=== PATIENT | male | born 1965 | race Hispanic/Latino ===

== ENCOUNTER 2017-05-17 15:01 | Observation (INO) | payer OTHER ==
[2017-05-17] MEDS ORDERED: Sodium Chloride 0.9% 1,000 ML IV STA (15:31)
[2017-05-17] MEDS ORDERED: Oxycodone/Acetaminophen 10/325 mg Tab PO STA (15:31)
--- NOTE | 2017-05-17 15:41 | ED PDOC ---
Arrival/HPI - General Chief Complaint: Shortness Of Breath Time Seen by Provider: 05/17/17 15:04 Historian: Patient - History of Present Illness Narrative History of Present Illness (Text): 05/17/17 15:25 Kimo Burt is a 52 year old male, with a history of right shoulder surgery on 15 mg percocet, and anxiety on Xanax, presents to the emergency department complaining of dizziness and shortness of breath for past 2-3 days. Patient became dizzy yesterday while taking a shower and states he twisted his shoulder after holding on to a handle to prevent the fall. Denies any LOC, head trauma, or weakness/numbness of extremity. Patient finished a course of Zithromax today for bronchitis. Patient also reports that he has difficulty breathing and chest pain which is worsened with deep inspiration. He has a recent stress test which , according to patient, showed" enlarged left ventricle." He also notes of hypotension with a pressure of 88/50 which was measured a week ago at PMD's office. He also reports of decreased appetite over the last few months, and informs of a weight loss of 20 pounds in 2 months. States he feels depressed, but denies any suicidal or homicidal ideation. Patient was started on Lexapro for depression by PMD, but was discontinued due to worsening panic attacks. Denies fever, chills, headache, nausea, vomiting, urinary symptoms, or any other complaints at this time. Time/Duration: < week (2-3 days ) Symptom Onset: Gradual Severity Level: Mild Context: Home Past Medical History - Provider Review Nursing Documentation Reviewed: Yes - Infectious Disease Hx of Infectious Diseases: None - Tetanus Immunization Tetanus Immunization: Unknown - Past Medical History Past Medical History: No Previous - Cardiac Hx Cardiac Disorders: No - Pulmonary Hx Respiratory Disorders: No Hx Bronchitis: Yes - Neurological Hx Neurological Disorder: No - HEENT Hx HEENT Disorder: No - Renal Hx Renal Disorder: No - Endocrine/Metabolic Hx Endocrine Disorders: No - Hematological/Oncological Hx Blood Disorders: No - Integumentary Hx Dermatological Disorder: No - Musculoskeletal/Rheumatological Hx Musculoskeletal Disorders: Yes Other/Comment: left torn rotator cuff - Gastrointestinal Hx Gastrointestinal Disorders: No - Genitourinary/Gynecological Hx Genitourinary Disorders: No - Psychiatric Hx Psychophysiologic Disorder: No Hx Depression: No Hx Emotional Abuse: No Hx Physical Abuse: No Hx Substance Use: No - Past Surgical History Past Surgical History: No Previous - Surgical History Hx Cardiac Catheterization: Yes Hx Eye Surgery: Yes (childhood) Hx Tonsillectomy: Yes Other/Comment: hemorrhoid surgery, 5 avusion fx, right rotator cuff surgery - Anesthesia Hx Anesthesia: Yes Hx Anesthesia Reactions: No - Suicidal Assessment Feels Threatened In Home Enviroment: No Family/Social History - Physician Review Nursing Documentation Reviewed: Yes Family/Social History: No Known Family HX Smoking Status: Current Some Days Smoker Hx Alcohol Use: Yes Amount per day: 2 Hx Substance Use: No Hx Substance Use Treatment: No Allergies/Home Meds Allergies/Adverse Reactions: Allergies amoxicillin trihydrate [From Augmentin] Allergy (Verified 05/17/17 15:10) ANAPHYLAXIS potassium clavulanate [From Augmentin] Allergy (Verified 05/17/17 15:10) ANAPHYLAXIS prednimustine Allergy (Verified 05/17/17 18:26) RASH prednisolone Allergy (Verified 05/17/17 18:26) RASH prednisolone acetate, micronized Allergy (Verified 05/17/17 18:26) RASH prednisone Allergy (Verified 05/17/17 18:26) RASH prednylidene Allergy (Verified 05/17/17 18:26) RASH prednison Allergy (Uncoded 05/17/17 18:26) RASH Home Medications: Home Meds Medication Instructions Recorded Confirmed ALPRAZolam HALF TABLET [Xanax] 1 mg PO DAILY 01/05/17 05/17/17 Oxycodone HCl [Roxicodone] 15 mg PO Q6 PRN 01/05/17 05/17/17 Review of Systems - Physician Review All systems were reviewed & negative as marked: Yes - Review of Systems Constitutional: Normal. absent: Fatigue, Fevers Respiratory: SOB. absent: Cough, Sputum Cardiovascular: Chest Pain, Other (near syncope). absent: Palpitations Gastrointestinal: Diarrhea, Appetite Changes (Loss of appetite; weight loss ). absent: Abdominal Pain, Nausea, Vomiting Genitourinary Male: Normal. absent: Dysuria Musculoskeletal: Back Pain, Other (left shoulder pain ) Neurological: Dizziness. absent: Focal Weakness Psychiatric: Depression. absent: Suicidal Ideation Physical Exam Vital Signs Reviewed: Yes Vital Signs Temp Pulse Resp BP Pulse Ox 05/17/17 17:40 48 L 18 130/65 98 05/17/17 16:39 56 L 18 131/69 98 05/17/17 16:27 56 L 18 152/62 H 100 05/17/17 15:06 97.8 F 76 14 156/66 H 100 Temperature: Afebrile Blood Pressure: Hypertensive Pulse: Regular Respiratory Rate: Normal Appearance: Positive for: Non-Toxic, Uncomfortable Pain Distress: None Mental Status: Positive for: Alert and Oriented X 3 - Systems Exam Head: Present: Atraumatic, Normocephalic Pupils: Present: PERRL Conjunctiva: Present: Normal Mouth: Present: Moist Mucous Membranes Pharnyx: Present: Normal. No: ERYTHEMA, EXUDATE Respiratory/Chest: Present: Clear to Auscultation, Good Air Exchange. No: Respiratory Distress, Accessory Muscle Use Cardiovascular: Present: Regular Rate and Rhythm, Normal S1, S2. No: Murmurs Abdomen: Present: Normal Bowel Sounds. No: Tenderness, Distention, Peritoneal Signs, Rebound, Guarding Upper Extremity: Present: Normal ROM (Full active and passive range of motion at the shoulder ), NORMAL PULSES, Tenderness (Tenderness to palpation of left posterior shoulder ), Neurovascularly Intact. No: Cyanosis, Edema, Swelling, Temperature Abnormalties, Deformity Lower Extremity: Present: Normal Inspection. No: Edema Neurological: Present: GCS=15, CN II-XII Intact, Speech Normal, Motor Func Grossly Intact, Normal Sensory Function Skin: Present: Warm, Dry, Normal Color. No: Rashes Psychiatric: Present: Alert, Oriented x 3, Normal Insight, Normal Concentration Medical Decision Making ED Course and Treatment: 05/17/17 15:43 Impression: A 52 year old male who presents to the emergency department complaining of dizziness, left shoulder, shortness of breath and chest pain for past few days. Differential Diagnosis include but are not limited to: Malignancy vs PE vs anxiety Plan: -- CT chest, Abd/Pel -- Labs, cardiac enzymes -- TSH -- Percocet -- Pepcid -- Toradol -- IVF -- Left shoudler X-ray -- Urinalysis -- Reassess and disposition -- Spoke with his pmd, Dr. Brady - plan will be to f/u results and admit. Progress Notes: 05/17/17 18:59 EXAM: CT Abdomen and Pelvis With Intravenous Contrast FINDINGS: ABDOMEN: Liver: A few small calcifications are visualized within the liver, suggestive of granulomatous disease. No mass. Gallbladder and bile ducts: No calcified stones. No ductal dilation. Pancreas: There is hypodense fatty infiltration of the head of the pancreas. Spleen: No splenomegaly. Adrenals: No mass. Kidneys and ureters: There is an exophytic hypodense left renal cyst measuring 5.4 cm in diameter. No hydronephrosis bilaterally. Stomach and bowel: There is wall thickening of the sigmoid colon and rectum , suggestive of proctocolitis. Colonic diverticula are also visualized. Additional pathology cannot be excluded. Appendix: No findings to suggest acute appendicitis. PELVIS: Bladder: No mass. Reproductive: A tiny calcification is visualized within the prostate. ABDOMEN and PELVIS: Intraperitoneal space: No free air. Bones/joints: Hypertrophic degenerative changes are noted within the spine. Vasculature: No abdominal aortic aneurysm. Lymph nodes: There is no significant retroperitoneal or intrapelvic lymphadenopathy. IMPRESSION: 1. There is wall thickening of the sigmoid colon and rectum, suggestive of proctocolitis. Colonic diverticula are also visualized. Additional pathology cannot be excluded. If further evaluation is clinically indicated, colonoscopy is recommended. 2. There is an exophytic hypodense left renal cyst measuring 5.4 cm in diameter. 3. Additional CT findings described above. EXAM: CT Chest With Intravenous Contrast FINDINGS: Lungs: On series 4 image 61, there is a 3-4mm left upper lobe nodule. Within the right middle lobe of the lung on series 4 image 92, there is a 9 mm hyperdense calcified nodule. No lung mass. Within the left lower lobe on series 4 image 87, there is an equivocal 3-4 mm nodule. Small biapical bullae are visualized. Pleural space: No pneumothorax. No significant effusion. Heart: There is a small pericardial effusion anteriorly. Fluid is visualized within the superior pericardial recess. Bones/joints: Hypertrophic degenerative changes are noted within the spine. Vasculature: There is absence of normal enhancement within segmental branches to the right middle lobe, concerning for pulmonary embolism. No acute central pulmonary embolism. Lymph nodes: No significant mediastinal lymphadenopathy. Small hilar lymph nodes are identified, without significant lymphadenopathy. IMPRESSION: 1. There is absence of normal enhancement within segmental branches to the right middle lobe, concerning for pulmonary embolism. 2. Small noncalcified pulmonary nodule(s). If this patient is at low risk for a primary malignancy, then no follow-up is required. If this patient is at high risk for a primary maligancy, then a follow-up noncontrast chest CT is recommended at 12 months. If unchanged at that time, then no follow-up is required. Fleischner Society Recommendations. Incidental Pulmonary Nodule Follow-up. Radiology, 2005 Nov;237(2):395-400. 3. There is a small pericardial effusion anteriorly. 4. Within the right middle lobe of the lung on series 4 image 92, there is a 9 mm hyperdense calcified nodule. EXAM: CT Abdomen and Pelvis With Intravenous Contrast FINDINGS: ABDOMEN: Liver: A few small calcifications are visualized within the liver, suggestive of granulomatous disease. No mass. Gallbladder and bile ducts: No calcified stones. No ductal dilation. Pancreas: There is hypodense fatty infiltration of the head of the pancreas. Spleen: No splenomegaly. Adrenals: No mass. Kidneys and ureters: There is an exophytic hypodense left renal cyst measuring 5.4 cm in diameter. No hydronephrosis bilaterally. Stomach and bowel: There is wall thickening of the sigmoid colon and rectum , suggestive of proctocolitis. Colonic diverticula are also visualized. Additional pathology cannot be excluded. Appendix: No findings to suggest acute appendicitis. PELVIS: Bladder: No mass. Reproductive: A tiny calcification is visualized within the prostate. ABDOMEN and PELVIS: Intraperitoneal space: No free air. Bones/joints: Hypertrophic degenerative changes are noted within the spine. Vasculature: No abdominal aortic aneurysm. Lymph nodes: There is no significant retroperitoneal or intrapelvic lymphadenopathy. IMPRESSION: 1. There is wall thickening of the sigmoid colon and rectum, suggestive of proctocolitis. Colonic diverticula are also visualized. Additional pathology cannot be excluded. If further evaluation is clinically indicated, colonoscopy is recommended. 2. There is an exophytic hypodense left renal cyst measuring 5.4 cm in diameter. 3. Additional CT findings described above. EXAM: CT Chest With Intravenous Contrast FINDINGS: Lungs: On series 4 image 61, there is a 3-4mm left upper lobe nodule. Within the right middle lobe of the lung on series 4 image 92, there is a 9 mm hyperdense calcified nodule. No lung mass. Within the left lower lobe on series 4 image 87, there is an equivocal 3-4 mm nodule. Small biapical bullae are visualized. Pleural space: No pneumothorax. No significant effusion. Heart: There is a small pericardial effusion anteriorly. Fluid is visualized within the superior pericardial recess. Bones/joints: Hypertrophic degenerative changes are noted within the spine. Vasculature: There is absence of normal enhancement within segmental branches to the right middle lobe, concerning for pulmonary embolism. No acute central pulmonary embolism. Lymph nodes: No significant mediastinal lymphadenopathy. Small hilar lymph nodes are identified, without significant lymphadenopathy. IMPRESSION: 1. There is absence of normal enhancement within segmental branches to the right middle lobe, concerning for pulmonary embolism. 2. Small noncalcified pulmonary nodule(s). If this patient is at low risk for a primary malignancy, then no follow-up is required. If this patient is at high risk for a primary maligancy, then a follow-up noncontrast chest CT is recommended at 12 months. If unchanged at that time, then no follow-up is required. Fleischner Society Recommendations. Incidental Pulmonary Nodule Follow-up. Radiology, 2005 Nov;237(2):395-400. 3. There is a small pericardial effusion anteriorly. 4. Within the right middle lobe of the lung on series 4 image 92, there is a 9 mm hyperdense calcified nodule. Dictated By: Neal Wilcox MD, MD Dictated Date/Time: 05/17/171849 Signed By: Neal Palmer MD 05/17/17 19:27 Patient with noted history. Given sob and weight loss, CT c/a/p ordered, showing PE and proctocolitis. Will start on heparin and abx - will need to be admitted - will need pulmonary, hematology, and GI consult. Case discussed with Dr. Ochoa who will admit the patient to the hospitalist service. - Lab Interpretations Lab Results: 05/17/17 15:38 05/17/17 15:38 Lab Results 05/17/17 16:00: Urine Color Yellow, Urine Appearance Clear, Urine pH 8.5, Ur Specific [place] 1.010, Urine Protein Negative, Urine Glucose (UA) Negative, Urine Ketones Negative, Urine Blood Negative, Urine Nitrate Negative, Urine Bilirubin Negative, Urine Urobilinogen 0.2, Ur Leukocyte Esterase Negative 05/17/17 15:38: TSH 3rd Generation 0.83 05/17/17 15:38: Sodium 142, Potassium 4.0, Chloride 106, Carbon Dioxide 27, Anion Gap 13, BUN 9, Creatinine 0.9, Est GFR ( Amer) > 60, Est GFR (Non- Af Amer) > 60, Random Glucose 100, Calcium 9.6, Magnesium 2.1, Total Bilirubin 0.5, Direct Bilirubin 0.3, AST 29, ALT 29, Alkaline Phosphatase 44, Lactate Dehydrogenase 318 L, Total Creatine Kinase 85, Troponin I < 0.01, NT-Pro-B Natriuret Pep 89.4, Total Protein 6.8, Albumin 4.2, Globulin 2.6, Albumin/ Globulin Ratio 1.6, Lipase 49 05/17/17 15:38: PT 10.9, INR 1.01, APTT 27.2 05/17/17 15:38: WBC 5.7, RBC 4.57, Hgb 13.1 L, Hct 38.4 L, MCV 84.0, MCH 28.7, MCHC 34.1, RDW 13.4, Plt Count 177, MPV 9.3, Gran % 66.0, Lymph % (Auto) 27.6, [place] % (Auto) 5.9, Eos % (Auto) 0.3 L, Baso % (Auto) 0.2, Gran # 3.78, Lymph # 1.6, [place] # 0.3, Eos # 0.0, Baso # 0.01 I have reviewed the lab results: Yes - RAD Interpretation Narrative RAD Interpretations (Text): 05/17/17 19:33 L shoulder: no acute findings Radiology Orders: 05/17/17 15:27 SHOULDER LEFT [RAD] Stat 05/17/17 15:30 CHEST,ABD,PEL W/IV&PO CONTRAST [CT] Stat Factory Clerk: Radiologist - EKG Interpretation EKG Interpretation (Text): 05/17/17 19:32 NSR @ 68; no ST/T changes; normal intervals; normal axis. - Medication Orders Current Medication Orders: Heparin Sodium/Dextrose (Heparin 25,000 Units/250ml In D5w) 25,000 units in 250 mls @ 17.023 mls/hr IV .[id number] PRN; Protocol; 18 UNITS/KG/HR PRN Reason: ADJUST RATE PER PROTOCOL Discontinued Medications Famotidine (Pepcid) 20 mg IVP STAT STA Stop: 05/17/17 15:32 Last Admin: 05/17/17 16:03 Dose: 20 mg Heparin Sodium (Porcine) (Heparin) 7,600 units 80 units/kg (7600 units) IV ONCE ONE PRN Reason: Protocol Stop: 05/17/17 19:21 Sodium Chloride (Sodium Chloride 0.9%) 1,000 mls @ 999 mls/hr IV .Q1H1M STA Stop: 05/17/17 16:31 Last Admin: 05/17/17 16:01 Dose: 999 mls/hr Iohexol (Omnipaque 240 (50 Ml)) Confirm Administered Dose 50 ml .ROUTE .STK-MED ONE Stop: 05/17/17 16:10 Iohexol (Omnipaque 350 100 Ml) Confirm Administered Dose 350 mg .ROUTE .STK-MED ONE Stop: 05/17/17 16:10 Iohexol (Omnipaque 350 150 Ml) Confirm Administered Dose 150 ml .ROUTE .STK-MED ONE Stop: 05/17/17 18:19 Ketorolac Tromethamine (Toradol) 30 mg IVP STAT STA Stop: 05/17/17 15:32 Last Admin: 05/17/17 16:03 Dose: Not Given Non-Admin Reason: Patient Refused Morphine Sulfate (Morphine) 4 mg IVP STAT STA Stop: 05/17/17 16:27 Last Admin: 05/17/17 16:32 Dose: 4 mg Oxycodone/Acetaminophen (Percocet 10/325 Mg Tab) 1 tab PO STAT STA Stop: 05/17/17 15:32 Last Admin: 05/17/17 16:01 Dose: 1 tab - Scribe Statement The provider has reviewed the documentation as recorded by the Mario Patricia Provider Attestation: Krystal Patricia Provider Scribe Attestation: All medical record entries made by the Enriqueibcharlie were at my direction and personally dictated by me. I have reviewed the chart and agree that the record accurately reflects my personal performance of the history, physical exam, medical decision making, and the department course for this patient. I have also personally directed, reviewed, and agree with the discharge instructions and disposition. Disposition/Present on Arrival - Present on Arrival Any Indicators Present on Arrival: No History of DVT/PE: No History of Uncontrolled Diabetes: No Urinary Catheter: No History of Decub. Ulcer: No History Surgical Site Infection Following: None - Disposition Have Diagnosis and Disposition been Completed?: Yes Diagnosis: Pulmonary embolism, Near syncope, Colitis Disposition: HOSPITALIZED Disposition Time: 19:15 Patient Plan: Admission Condition: FAIR Referrals: Garo Brady MD [Primary Care Provider] - Follow up with primary
[2017-05-17 16:02] LABS: BASO # 0.01 K/mm3 (0.0-2.0); BASO % 0.2 % (0.0-3.0); EOS % 0.3 % (1.5-5.0); GRAN # 3.78 (1.4-6.5); HEMOGLOBIN 13.1 gm/dL (14.0-18.0); LYMPH # 1.6 (1.2-3.4); LYMPH % 27.6 % (22.0-35.0); MEAN CORPUSCULAR HEMOGLOBIN 28.7 pg (25.0-35.0); MEAN CORPUSCULAR HGB CONC 34.1 g/dl (31.0-37.0); MEAN PLATELET VOLUME 9.3 fl (7.0-11.0); MONO # 0.3 (0.1-0.6); MONO % 5.9 % (1.0-6.0); PLATELET COUNT 177 10^3/uL (120.0-450.0); RBC 4.57 10^6/uL (3.5-6.1); RED CELL DISTRIBUTION WIDTH 13.4 % (11.5-14.5); WHITE BLOOD COUNT 5.7 10^3/ul (4.5-11.0)
[2017-05-17] MEDS ORDERED: Iohexol 240 (50 ml) ONE (16:09)
[2017-05-17] MEDS ORDERED: Iohexol 350 MG/100 ML VIAL ONE (16:09)
[2017-05-17 16:14] LABS: INR 1.01 (0.93-1.08); PARTIAL THROMBOPLASTIN TIME 27.2 Seconds (23.7-30.8); PROTHROMBIN TIME 10.9 Seconds (9.9-11.8)
[2017-05-17 16:19] LABS: PH,URINE 8.5 (4.7-8.0); URINE BILIRUBIN NEGATIVE (NEGATIVE); URINE BLOOD NEGATIVE (NEGATIVE); URINE GLUCOSE (UA) NEGATIVE (NEGATIVE); URINE LEUKOCYTE ESTERASE NEGATIVE Leu/uL (NEGATIVE); URINE NITRATE NEGATIVE (NEGATIVE); URINE PROTEIN NEGATIVE mg/dL (<30 mg/dL); URINE UROBILINOGEN 0.2 E.U./dL (<1 E.U./dL)
[2017-05-17 16:21] LABS: URINE COLOR YELLOW (YELLOW)
[2017-05-17 16:22] LABS: URINE APPEARANCE CLEAR (CLEAR)
[2017-05-17 16:23] LABS: ALB/GLOB RATIO 1.6 (1.1-1.8); ALBUMIN 4.2 g/dL (3.0-4.8); ALT/SGPT 29 U/L (7-56); AST/SGOT 29 U/L (15-59); BILIRUBIN,DIRECT 0.3 mg/dL (0.0-0.4); BLOOD UREA NITROGEN 9 mg/dL (7-21); CALCIUM 9.6 mg/dL (8.4-10.5); GFR AFRICAN-AMERICAN > 60; GFR NON-AFRICAN AMERICAN > 60; LIPASE 49 U/L (23-300); MAGNESIUM 2.1 mg/dL (1.7-2.2)
[2017-05-17] MEDS ORDERED: Morphine 4 mg/ml ISec IVP STA (16:26)
[2017-05-17 16:34] LABS: B-TYPE NATRIURETIC PEPTIDE 89.4 pg/mL (0-450)
[2017-05-17 16:38] LABS: TROPONIN I < 0.01 ng/mL
--- NOTE | 2017-05-17 18:50 | CT ---
EXAM: CT Abdomen and Pelvis With Intravenous Contrast CLINICAL HISTORY: The patient age is 52 years old and is male; Pain; Abdominal pain; Generalized; Chest pain; Type not specified; Additional info: Chest pain, epigastric pain; Weight loss; R/O ca Facility exam id and description: Ct [facility] chest, abd, pel w/iv po contrast TECHNIQUE: Axial computed tomography images of the abdomen and pelvis with intravenous contrast. This CT exam was performed using one or more of the following dose reduction techniques: automated exposure control, adjustment of the mA and/or kV according to patient size, and/or use of iterative reconstruction technique. Coronal and sagittal reformatted images were created and reviewed. CONTRAST: 100 mL of omni 350 administered intravenously. COMPARISON: No relevant prior studies available. FINDINGS: ABDOMEN: Liver: A few small calcifications are visualized within the liver, suggestive of granulomatous disease. No mass. Gallbladder and bile ducts: No calcified stones. No ductal dilation. Pancreas: There is hypodense fatty infiltration of the head of the pancreas. Spleen: No splenomegaly. Adrenals: No mass. Kidneys and ureters: There is an exophytic hypodense left renal cyst measuring 5.4 cm in diameter. No hydronephrosis bilaterally. Stomach and bowel: There is wall thickening of the sigmoid colon and rectum, suggestive of proctocolitis. Colonic diverticula are also visualized. Additional pathology cannot be excluded. Appendix: No findings to suggest acute appendicitis. PELVIS: Bladder: No mass. Reproductive: A tiny calcification is visualized within the prostate. ABDOMEN and PELVIS: Intraperitoneal space: No free air. Bones/joints: Hypertrophic degenerative changes are noted within the spine. Vasculature: No abdominal aortic aneurysm. Lymph nodes: There is no significant retroperitoneal or intrapelvic lymphadenopathy. IMPRESSION: 1. There is wall thickening of the sigmoid colon and rectum, suggestive of proctocolitis. Colonic diverticula are also visualized. Additional pathology cannot be excluded. If further evaluation is clinically indicated, colonoscopy is recommended. 2. There is an exophytic hypodense left renal cyst measuring 5.4 cm in diameter. 3. Additional CT findings described above. EXAM: CT Chest With Intravenous Contrast CLINICAL HISTORY: The patient age is 52 years old and is male; Pain; Abdominal pain; Generalized; Chest pain; Type not specified; Additional info: Chest pain, epigastric pain; Weight loss; R/O ca Facility exam id and description: Ct cheabdpelc chest, abd, pel w/iv po contrast TECHNIQUE: Axial computed tomography images of the chest with intravenous contrast. This CT exam was performed using one or more of the following dose reduction techniques: automated exposure control, adjustment of the mA and/or kV according to patient size, and/or use of iterative reconstruction technique. Coronal and sagittal reformatted images were created and reviewed. CONTRAST: 100 mL of omni 350 administered intravenously. EXAM DATE/TIME: 05/17/2017 3:30 PM COMPARISON: TMT - MYOCARDIAL STRESS REST SPECT 05/14/2017 7:47:36 AM FINDINGS: Lungs: On series 4 image 61, there is a 3-4mm left upper lobe nodule. Within the right middle lobe of the lung on series 4 image 92, there is a 9 mm hyperdense calcified nodule. No lung mass. Within the left lower lobe on series 4 image 87, there is an equivocal 3-4 mm nodule. Small biapical bullae are visualized. Pleural space: No pneumothorax. No significant effusion. Heart: There is a small pericardial effusion anteriorly. Fluid is visualized within the superior pericardial recess. Bones/joints: Hypertrophic degenerative changes are noted within the spine. Vasculature: There is absence of normal enhancement within segmental branches to the right middle lobe, concerning for pulmonary embolism. No acute central pulmonary embolism. Lymph nodes: No significant mediastinal lymphadenopathy. Small hilar lymph nodes are identified, without significant lymphadenopathy. IMPRESSION: 1. There is absence of normal enhancement within segmental branches to the right middle lobe, concerning for pulmonary embolism. 2. Small noncalcified pulmonary nodule(s). If this patient is at low risk for a primary malignancy, then no follow-up is required. If this patient is at high risk for a primary maligancy, then a follow-up noncontrast chest CT is recommended at 12 months. If unchanged at that time, then no follow-up is required. Fleischner Society Recommendations. Incidental Pulmonary Nodule Follow-up. Radiology, 2005 Nov;237(2):395-400. 3. There is a small pericardial effusion anteriorly. 4. Within the right middle lobe of the lung on series 4 image 92, there is a 9 mm hyperdense calcified nodule.
[2017-05-17] MEDS ORDERED: HYDROmorphone 1 mg/ml ISec IVP STA (19:58)
[2017-05-17] MEDS: Heparin 25,000units in D5W 25,000 UNITS/250 ML BAG IV PRN (20:12)
[2017-05-17 20:23] VITALS: BMI 27.5
--- NOTE | 2017-05-17 22:45 | CP.PCM.HP ---
<JeanieSrinivas - Last Filed: 05/18/17 07:05> History of Present Illness - History of Present Illness History of Present Illness: CC: Shoulder pain and SOB Mr. Álvarez is a 52 y/o male with a pertinent PMHx of tobacco abuse and right sided shoulder pain for which he takes Percocet 15, who presented with a c/o SOB of 2 months duration on and off, worsening over the past 2-3 days. Mr. Álvarez was recently seen for bronchitis and finished a course of ABx ( Zithromax) on the day of admission (05/17/17). Patient stated that the pain got worse with inspiration and that nothing made it better. Patient denied a history of clots, as well as a history of fever, chills, nausea, vomiting, urinary symptoms, or headaches. Patient further complained of pain in his right shoulder s/p catching a fall in the shower on Thursday. Patient received dilaudid in the ED for this pain. Patient denied any head trauma, focal weakness, loss of sensation, and any other symptoms. Of note, patient had a recent stress test which showed an enlarged left ventricle, per the patient. Cardio is on consult. Finally, patient also stated that he lost 80 pounds, unintentionally over the past year. Heme onc is on consult PMHx: As above PSHx: Rotator cuff surgery All: Prednisone, Augmentin SocHx: .5ppd for 30 years; cocaine, heroin in the past; drinks occasionally Meds: Percocet 15 mg; Xanax FamHx: Non-contributory Present on Admission - Present on Admission Any Indicators Present on Admission: No Review of Systems - Review of Systems Review of Systems: Constitutional: pt denies fever, chills, generalized weakness ENT: pt denies dysphagia, ofalgia, hearing deficit, rhinorrhea Eyes: pt denies sudden loss of vision, diplopia, blurred vision MSK: + shoulder joint pain, denies extremity cramping Cardio: +sob, +cp; pt deniesheart murmur; see hpi Pulm: +sob, pt denies cough, hemoptysis, wheeze GI: pt denies loss of appetite, abdominal pain, constipation, melena, n/v/d : pt denies burning on urination, urinary frequency, hematuria, urinary urgency Neuro: pt denies paresis, paresthesia, dizziness, gu, numbness, tingling Derm: pt denies skin changes, lesions, nail changes Endo: pt denies intolerance to heat/cold, diaphoresis, night sweats, polydipsia Psych: +anxiety; pt denies depression, mood changes Past Patient History - Infectious Disease Hx of Infectious Diseases: None - Tetanus Immunizations Tetanus Immunization: Unknown - Past Medical History & Family History Past Medical History?: Yes - Past Social History Smoking Status: Current Some Days Smoker - CARDIAC Hx Cardiac Disorders: No - PULMONARY Hx Respiratory Disorders: No Hx Bronchitis: Yes - NEUROLOGICAL Hx Neurological Disorder: No - HEENT Hx HEENT Problems: No - RENAL Hx Chronic Kidney Disease: No - ENDOCRINE/METABOLIC Hx Endocrine Disorders: No - HEMATOLOGICAL/ONCOLOGICAL Hx Blood Disorders: No - INTEGUMENTARY Hx Dermatological Problems: No - MUSCULOSKELETAL/RHEUMATOLOGICAL Hx Falls: No - GASTROINTESTINAL Hx Gastrointestinal Disorders: No - GENITOURINARY/GYNECOLOGICAL Hx Genitourinary Disorders: No - PSYCHIATRIC Hx Psychophysiologic Disorder: No Hx Depression: No Hx Emotional Abuse: No Hx Physical Abuse: No - SURGICAL HISTORY Hx Cardiac Catheterization: Yes Other/Comment: hemorrhoid surgery, 5 avusion fx, right rotator cuff surgery - ANESTHESIA Hx Anesthesia: Yes Hx Anesthesia Reactions: No Meds Allergies/Adverse Reactions: Allergies Allergy/AdvReac Type Severity Reaction Status Date / Time amoxicillin trihydrate Allergy ANAPHYLAXIS Verified 05/17/17 15:10 [From Augmentin] potassium clavulanate Allergy ANAPHYLAXIS Verified 05/17/17 15:10 [From Augmentin] prednimustine Allergy RASH Verified 05/17/17 18:26 prednisolone Allergy RASH Verified 05/17/17 18:26 prednisolone acetate, Allergy RASH Verified 05/17/17 18:26 micronized prednisone Allergy RASH Verified 05/17/17 18:26 prednylidene Allergy RASH Verified 05/17/17 18:26 prednison Allergy RASH Uncoded 05/17/17 18:26 Physical Exam - Constitutional Additional comments: VS as above Constitutional: a&o x 4, nad Head and Neck: neck supple, no jvd, trachea midline, carotid midline, no cervical/head mass Eyes: kelsea, nonicteric sclera, eom intact ENT: auditory acuity grossly intact, throat not congested, no nasal deformity Cardio: rrr, no m/r/g, no carotid bruit, nml s1, s2 Pulm: no accessory muscle use, equal nml breath sounds bilaterally, ctab Abd: s/nt/nd, nbs x 4 q, no palpable masses Derm: no rashes, no ulcers, no lesions Extr: no edema, no cyanosis, no calf tenderness, no lesions, no varicosities Neuro: cn II-XII grossly intact, ue and le 3+ muscle strength bilaterally, no los ue, le bilaterally and core Results - Vital Signs Recent Vital Signs: Last Vital Signs Temp 97.8 F 05/17/17 15:06 Pulse 48 L 05/17/17 17:40 Resp 18 05/17/17 20:17 BP 130/65 05/17/17 17:40 Pulse Ox 98 05/17/17 17:40 - Labs Result Diagrams: 05/17/17 15:38 05/17/17 15:38 Assessment & Plan - Assessment and Plan (Free Text) Assessment: Mr. Álvarez is a 52 y/o male with a pertinent PMHx of tobacco abuse and right sided shoulder pain for which he takes Percocet 15, who presented with a c/o SOB of 2 months duration on and off, worsening over the past 2-3 days. A/P: 1.) SOB 2/2 pulmonary embolism a.) heparin drip b.) pulm on consult c.) f/u with PMD 2.) CP likely 2/2 #1 above, VS unknown etiology a.) Cardio on consult 3.) Unprovoked weight loss possibly 2/2 malignancy VS anxiety VS colitis VS unknown etiology a.) uncalcified pulmonary nodules identified on CT b.) colon inflammation on CT c.) patient has a hx of anxiety d.) heme onc on consult e.) gi on consult f.) pulm on consult 4.) Hx/O shoulder pain a.) pt on home Percocet 5.) Hx/O Tobacco abuse a.) advise patient on tobacco cessation 6.) GI PPHXS a.) Protonix 7.) DVT PPHXS a.) Heparin drip <Paige Ochoa - Last Filed: 05/18/17 20:10> Results - Vital Signs Recent Vital Signs: Last Vital Signs Temp 98.9 F 05/18/17 18:00 Pulse 50 L 05/18/17 18:07 Resp 16 05/18/17 18:00 BP 123/72 05/18/17 18:00 Pulse Ox 99 05/18/17 00:01 - Labs Result Diagrams: 05/18/17 05:30 05/18/17 05:30 Labs: Laboratory Results - last 24 hr 05/18/17 05/18/17 05/18/17 02:15 05:30 05:30 WBC 5.7 RBC 4.12 Hgb 11.8 L Hct 34.9 L MCV 84.7 MCH 28.6 MCHC 33.8 RDW 13.7 Plt Count 147 MPV 9.2 Gran % 59.0 Lymph % (Auto) 30.9 [place] % (Auto) 8.1 H Eos % (Auto) 1.8 Baso % (Auto) 0.2 Gran # 3.36 Lymph # 1.8 [place] # 0.5 Eos # 0.1 Baso # 0.01 APTT 136.8 H* Sodium 141 Potassium 4.3 Chloride 108 H Carbon Dioxide 25 Anion Gap 12 BUN 12 Creatinine 0.9 Est GFR ( Amer) > 60 Est GFR (Non-Af Amer) > 60 Random Glucose 97 Calcium 8.8 Total Bilirubin 0.4 AST 16 ALT 23 Alkaline Phosphatase 44 Total Protein 6.0 Albumin 3.6 Globulin 2.4 Albumin/Globulin Ratio 1.5 05/18/17 05/18/17 10:30 15:37 WBC RBC Hgb Hct MCV MCH MCHC RDW Plt Count MPV Gran % Lymph % (Auto) [place] % (Auto) Eos % (Auto) Baso % (Auto) Gran # Lymph # [place] # Eos # Baso # APTT 51.4 H 54.0 H Sodium Potassium Chloride Carbon Dioxide Anion Gap BUN Creatinine Est GFR ( Amer) Est GFR (Non-Af Amer) Random Glucose Calcium Total Bilirubin AST ALT Alkaline Phosphatase Total Protein Albumin Globulin Albumin/Globulin Ratio Attending/Attestation - Attestation I have personally seen and examined this patient.: Yes I have fully participated in the care of the patient.: Yes I have reviewed all pertinent clinical information: Yes Notes (Text): 05/18/17 20:08 Patient was seen when he was in bed # 2 in the ER . Agree with history , physical examination, assessment and plan. 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 Primary physician at [facility].Infant Lead Teacher is . Was also seen by .
[2017-05-17] MEDS ORDERED: Oxycodone/Acetaminophen 10/325 mg Tab PO PRN (23:20)
[2017-05-18] MEDS: oxyCODONE 15 mg Immediate Release Tab PO PRN ×4 (05:12→22:57)
[2017-05-18 07:09] LABS: BASO # 0.01 K/mm3 (0.0-2.0); BASO % 0.2 % (0.0-3.0); EOS # 0.1 (0.0-0.7); EOS % 1.8 % (1.5-5.0); GRAN # 3.36 (1.4-6.5); HEMOGLOBIN 11.8 gm/dL (14.0-18.0); LYMPH # 1.8 (1.2-3.4); LYMPH % 30.9 % (22.0-35.0); MEAN CELL VOLUME 84.7 fL (80.0-105.0); MEAN CORPUSCULAR HEMOGLOBIN 28.6 pg (25.0-35.0); MEAN CORPUSCULAR HGB CONC 33.8 g/dl (31.0-37.0); MEAN PLATELET VOLUME 9.2 fl (7.0-11.0); MONO # 0.5 (0.1-0.6); MONO % 8.1 % (1.0-6.0); PLATELET COUNT 147 10^3/uL (120.0-450.0); RBC 4.12 10^6/uL (3.5-6.1); RED CELL DISTRIBUTION WIDTH 13.7 % (11.5-14.5); WHITE BLOOD COUNT 5.7 10^3/ul (4.5-11.0)
[2017-05-18 07:32] LABS: ALB/GLOB RATIO 1.5 (1.1-1.8); ALBUMIN 3.6 g/dL (3.0-4.8); ALT/SGPT 23 U/L (7-56); AST/SGOT 16 U/L (15-59); BLOOD UREA NITROGEN 12 mg/dL (7-21); CALCIUM 8.8 mg/dL (8.4-10.5); GFR AFRICAN-AMERICAN > 60; GFR NON-AFRICAN AMERICAN > 60
--- NOTE | 2017-05-18 07:34 | RAD ---
PROCEDURE: Radiographs of the Left Shoulder HISTORY: L shoulder pain post fall COMPARISON: Comparison made with CT scan chest 05/17/2017 which image the left shoulder in 3 planes. FINDINGS: BONES: No evidence of acute displaced fracture nor dislocation JOINTS: Mild degenerative changes of the left acromioclavicular joint. SOFT TISSUES: Normal. OTHER FINDINGS: None. IMPRESSION: Mild DJD left acromioclavicular joint. If symptoms persist or occult left shoulder showed shoulder
--- NOTE | 2017-05-18 09:27 | CP.PCM.CON ---
<Elaine Dailey - Last Filed: 05/18/17 14:07> History of Present Illness - History of Present Illness History of Present Illness: Kimo Burt is 52M w/ hx of hemorrhoids, chronic pain, and shoulder dysfunction who presents to the ER due to near syncope. Pt states for the past few weeks to a month is has been increasingly SOB, especially on exertion. Pt states that he has also been increasing lethargic an weak. Pt noted that prior to coming to the ER he suddenly felt lightheaded upon change in position. After ER w/u he was found to have an new and was found to have sigmoid and rectal wall thickening. Pt denies any recent abd pain, but at bedside states that he has been c/o of indigestion. He admits to some discomfort in LLQ, but denies any pain. He is chronically constipated 2/2 opiate use. According to him, he normally has 4-5 BM weekly. He does have a hx of hemorrhoids which required surgery (possible banding) 5 years ago. Pt states that he occasionally has BRBPR but associates it with his hemorrhoids and his often exacerbated with constipation and straining. He notes that he sees minimal blood during these episodes, and sometimes only while wiping. He states that he has had a routine colonoscopy 2 years ago at [facility], which he was told was neg for any findings. Pts also states he a had both an EGD and colonoscopy 5 years ago for lower GI bleed believed to be 2/2 hemorrhoids. He believes that the only findings were hemorrhoids. Pt notes having at least 8 lb weight loss in the last 1 month. Pt has lost almost 32 lb since Dec according to our records. 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 Endoscopy hx: (need records from [facility], faxed release) 2 years ago: possibly at [facility]; colonoscopy screening: denies any pathology ie polyps or masses 5 years ago: possibly at [facility]; Colon and EGD for GI bleed: as per pt, only hemorrhoids found Past Patient History - Infectious Disease Hx of Infectious Diseases: None - Tetanus Immunizations Tetanus Immunization: Unknown - Past Medical History & Family History Past Medical History?: Yes - Past Social History Smoking Status: Current Some Days Smoker - CARDIAC Hx Cardiac Disorders: No - PULMONARY Hx Respiratory Disorders: No Hx Bronchitis: Yes - NEUROLOGICAL Hx Neurological Disorder: No - HEENT Hx HEENT Problems: No - RENAL Hx Chronic Kidney Disease: No - ENDOCRINE/METABOLIC Hx Endocrine Disorders: No - HEMATOLOGICAL/ONCOLOGICAL Hx Blood Disorders: No - INTEGUMENTARY Hx Dermatological Problems: No - MUSCULOSKELETAL/RHEUMATOLOGICAL Hx Falls: No - GASTROINTESTINAL Hx Gastrointestinal Disorders: No - GENITOURINARY/GYNECOLOGICAL Hx Genitourinary Disorders: No - PSYCHIATRIC Hx Psychophysiologic Disorder: No Hx Depression: No Hx Emotional Abuse: No Hx Physical Abuse: No - SURGICAL HISTORY Hx Cardiac Catheterization: Yes Other/Comment: hemorrhoid surgery, 5 avusion fx, right rotator cuff surgery - ANESTHESIA Hx Anesthesia: Yes Hx Anesthesia Reactions: No Meds Allergies/Adverse Reactions: Allergies Allergy/AdvReac Type Severity Reaction Status Date / Time amoxicillin trihydrate Allergy ANAPHYLAXIS Verified 05/17/17 15:10 [From Augmentin] potassium clavulanate Allergy ANAPHYLAXIS Verified 05/17/17 15:10 [From Augmentin] prednimustine Allergy RASH Verified 05/17/17 18:26 prednisolone Allergy RASH Verified 05/17/17 18:26 prednisolone acetate, Allergy RASH Verified 05/17/17 18:26 micronized prednisone Allergy RASH Verified 05/17/17 18:26 prednylidene Allergy RASH Verified 05/17/17 18:26 prednison Allergy RASH Uncoded 05/17/17 18:26 - Medications Medications: Current Medications Alprazolam (Xanax) 1 mg PO DAILY ANNAMARIE Heparin Sodium/Dextrose (Heparin 25,000 Units/250ml In D5w) 25,000 units in 250 mls @ 17.023 mls/hr IV .[id number] PRN; Protocol; 18 UNITS/KG/HR PRN Reason: ADJUST RATE PER PROTOCOL Last Titration: 05/18/17 03:59 Dose: 14.06 units/kg/hr, 13.3 mls/hr Metronidazole (Flagyl) 250 mg in 50 mls @ 100 mls/hr IVPB Q8 ANNAMARIE PRN Reason: Protocol Stop: 05/23/17 14:01 Levofloxacin (Levaquin) 500 mg PO DAILY [facility] Oxycodone HCl (Oxycodone Immediate Release Tab) 15 mg PO Q6 PRN PRN Reason: Pain, severe (8-10) Last Admin: 05/18/17 05:12 Dose: 15 mg Pantoprazole Sodium (Protonix Ec Tab) 20 mg PO 0600,1600 [facility] Physical Exam - Constitutional Appears: Well, Non-toxic, No Acute Distress - Head Exam Head Exam: ATRAUMATIC, NORMOCEPHALIC - Eye Exam Eye Exam: EOMI, Normal appearance - ENT Exam ENT Exam: Mucous Membranes Moist, Normal Exam - Neck Exam Neck exam: Positive for: Normal Inspection - Respiratory Exam Respiratory Exam: Clear to Auscultation Bilateral, NORMAL BREATHING PATTERN - Cardiovascular Exam Cardiovascular Exam: REGULAR RHYTHM. absent: JVD - GI/Abdominal Exam GI & Abdominal Exam: Normal Bowel Sounds, Soft. absent: Guarding, Organomegaly , Pulsatile Mass, Rebound, Rigid - Rectal Exam Additional comments: no stool in rectal vault, felt hemorrhoid in the 8 and 6 0clock positions, old thrombosed skin tags noted around the anus - Extremities Exam Extremities exam: Positive for: normal inspection. Negative for: calf tenderness, joint swelling - Neurological Exam Neurological exam: Alert, Oriented x3 - Psychiatric Exam Psychiatric exam: Normal Affect, Normal Mood - Skin Skin Exam: Dry, Intact, Normal Color, Warm Results - Vital Signs Recent Vital Signs: Last Vital Signs Temp 98.5 F 05/18/17 06:22 Pulse 70 05/18/17 06:22 Resp 20 05/18/17 06:22 BP 107/61 05/18/17 06:22 Pulse Ox 99 05/18/17 00:01 - Labs Result Diagrams: 05/18/17 05:30 05/18/17 05:30 Labs: Laboratory Results - last 24 hr 05/18/17 05/18/17 05/18/17 02:15 05:30 05:30 WBC 5.7 RBC 4.12 Hgb 11.8 L Hct 34.9 L MCV 84.7 MCH 28.6 MCHC 33.8 RDW 13.7 Plt Count 147 MPV 9.2 Gran % 59.0 Lymph % (Auto) 30.9 [place] % (Auto) 8.1 H Eos % (Auto) 1.8 Baso % (Auto) 0.2 Gran # 3.36 Lymph # 1.8 [place] # 0.5 Eos # 0.1 Baso # 0.01 APTT 136.8 H* Sodium 141 Potassium 4.3 Chloride 108 H Carbon Dioxide 25 Anion Gap 12 BUN 12 Creatinine 0.9 Est GFR ( Amer) > 60 Est GFR (Non-Af Amer) > 60 Random Glucose 97 Calcium 8.8 Total Bilirubin 0.4 AST 16 ALT 23 Alkaline Phosphatase 44 Total Protein 6.0 Albumin 3.6 Globulin 2.4 Albumin/Globulin Ratio 1.5 - Imaging and Cardiology CT scan - abdomen Status: Report reviewed by me (+ PE and wall thickening of the sigmoid and rectum) Assessment & Plan - Assessment and Plan (Free Text) Assessment: Kimo Burt is a 52M w/ hx of chronic pain and hemorroids who presents to the ED with new PE. Pt was found to have incidental finding of sigmoid and rectal wall thickening without any symptoms. He has had previous colonoscopies and EGD in the last 2 and 5 years year. According to pt, other than the hemorrhoids there were no acute findings. Pt has also had a significant unintentional weight loss in the last year. Colitis of the sigmoid and rectum Dx: IBD, malignancy, Diverticulitis, infectious (low on diff. due to no other findings), ulcer -can discontinue abx, as pt is asymptomatic and afebrile since admission -can advance diet if tolerated -followup as outpt for colonoscopy 6-8 weeks post discharge for colonoscopy -will need to get records from PCP or other GI to confirm colonoscopy and EGD findings Indigestion DDx: GERD, r/o malignancy, dyspepsia -continue PPI -can do an EGD during followup colonoscopy in 6-8 weeks -avoid NSAIDs Constipation -likley 2/2 chronic opoid use -pt states that he is actively weaning off of is percocet -can use miraalax daily, with or without senna or colace Hemorrhoids -avoid constipation -recommend not straining or sitting on toilet basin for extended periods - can take stool softners OTC. D/W Dr. Kirkpatrick <Jarett Kirkpatrick - Last Filed: 05/18/17 14:21> Meds - Medications Medications: Current Medications Alprazolam (Xanax) 1 mg PO DAILY [facility] Last Admin: 05/18/17 10:17 Dose: 1 mg Heparin Sodium/Dextrose (Heparin 25,000 Units/250ml In D5w) 25,000 units in 250 mls @ 17.023 mls/hr IV .[id number] PRN; Protocol; 18 UNITS/KG/HR PRN Reason: ADJUST RATE PER PROTOCOL Last Admin: 05/18/17 11:41 Dose: 14.06 units/kg/hr, 13.297 mls/hr Oxycodone HCl (Oxycodone Immediate Release Tab) 15 mg PO Q6 PRN PRN Reason: Pain, severe (8-10) Pantoprazole Sodium (Protonix Ec Tab) 20 mg PO 0600,1600 [facility] Results - Vital Signs Recent Vital Signs: Last Vital Signs Temp 98.5 F 05/18/17 06:22 Pulse 70 05/18/17 06:22 Resp 20 05/18/17 06:22 BP 107/61 05/18/17 06:22 Pulse Ox 99 05/18/17 00:01 - Labs Result Diagrams: 05/18/17 05:30 05/18/17 05:30 Labs: Laboratory Results - last 24 hr 05/18/17 05/18/17 05/18/17 02:15 05:30 05:30 WBC 5.7 RBC 4.12 Hgb 11.8 L Hct 34.9 L MCV 84.7 MCH 28.6 MCHC 33.8 RDW 13.7 Plt Count 147 MPV 9.2 Gran % 59.0 Lymph % (Auto) 30.9 [place] % (Auto) 8.1 H Eos % (Auto) 1.8 Baso % (Auto) 0.2 Gran # 3.36 Lymph # 1.8 [place] # 0.5 Eos # 0.1 Baso # 0.01 APTT 136.8 H* Sodium 141 Potassium 4.3 Chloride 108 H Carbon Dioxide 25 Anion Gap 12 BUN 12 Creatinine 0.9 Est GFR ( Amer) > 60 Est GFR (Non-Af Amer) > 60 Random Glucose 97 Calcium 8.8 Total Bilirubin 0.4 AST 16 ALT 23 Alkaline Phosphatase 44 Total Protein 6.0 Albumin 3.6 Globulin 2.4 Albumin/Globulin Ratio 1.5 05/18/17 10:30 WBC RBC Hgb Hct MCV MCH MCHC RDW Plt Count MPV Gran % Lymph % (Auto) [place] % (Auto) Eos % (Auto) Baso % (Auto) Gran # Lymph # [place] # Eos # Baso # APTT 51.4 H Sodium Potassium Chloride Carbon Dioxide Anion Gap BUN Creatinine Est GFR ( Amer) Est GFR (Non-Af Amer) Random Glucose Calcium Total Bilirubin AST ALT Alkaline Phosphatase Total Protein Albumin Globulin Albumin/Globulin Ratio Attending/Attestation - Attestation I have personally seen and examined this patient.: Yes I have fully participated in the care of the patient.: Yes I have reviewed all pertinent clinical information: Yes Notes (Text): 05/18/17 14:14 I have seen and examined patient with GI fellow. Agree with above documentation with the following additions. In brief, this is a 52 year old male with history of chronic muscle and joint pain, who presents to hospital with complaint of progressive fatigue and dyspnea for the past three weeks. Workup during current hospitalization revealed acute pulmonary embolism. GI called for evaluation of bowel wall thickening present on CT imaging. Patient admits to intermittent "indigestion" but denies abdominal pain, nausea, vomiting , diarrhea, fever/chills, or change in bowel habits. He does report significant weight loss of nearly 35 pounds over past 5 months. He claims to have had a colonoscopy 2-3 years ago at [facility] which was normal as per patient. Fatigue, dyspnea on exertion - acute pulmonary embolism Unexplained weight loss Colitis - CT imaging reviewed by me showing minimal non-specific sigmoid/rectal wall thickening without associated blanca-colonic disease - Diet as tolerated - Continue with anti-coagulation treatment for acute pulmonary embolism - No clinical indication for antibiotic therapy in this situation given absence of GI symptoms - Hypercoaguable workup sent by medical team, follow up results - Obtain prior endoscopic reports from [facility] - Given ongoing unexplained weight loss in patient with heavy smoking history and new onset PE, malignancy must be ruled out. Would suggest elective outpatient endoscopic evaluation following resolution of acute issues. Will have to coordinate with PMD since patient will require extended therapy with anticoagulation. - Bowel regimen to prevent constipation
--- NOTE | 2017-05-18 09:55 | CARD ---
APPROVED REPORT EKG Measurement Heart [id number] <Conclusion> Normal sinus rhythm Normal ECG No change
[2017-05-18] MEDS ORDERED: cefTRIAXone 1 gm 1 GM/100 ML BAG IVPB SCH (10:00)
[2017-05-18] MEDS ORDERED: levoFLOXacin 500 MG TAB PO SCH (10:00)
[2017-05-18] MEDS: Heparin 25,000units in D5W 25,000 UNITS/250 ML BAG IV PRN (11:41)
--- NOTE | 2017-05-18 13:46 | CT ---
PROCEDURE: CT of the left shoulder without contrast HISTORY: r/o rotator cuff tear COMPARISON: TECHNIQUE: CT of the left shoulder was performed in the axial plane with sagittal and coronal reconstructions. FINDINGS: There is no obvious rotator cuff tear. There is no retraction or atrophy of the cuff. There are no significant degenerative changes arising from the acromion. There are no bony degenerative changes in the glenohumeral joint. IMPRESSION: Negative study
[2017-05-18] MEDS ORDERED: metroNIDAZOLE IV 250mg/50 ml 250 MG/50 ML BAG IVPB SCH (14:00)
--- NOTE | 2017-05-18 15:01 | CP.PCM.PN ---
<MichelecharlieMirelayaritza - Last Filed: 05/18/17 17:53> Subjective - Date & Time of Evaluation Date of Evaluation: 05/18/17 Time of Evaluation: 07:15 - Subjective Subjective: Patient has been S/E. Patient denies any headache, Lightheadedness, Dizziness. Patient complains of fatigue and SOB which he states has not improved since yesterday. Patient states that he still has some pain during inspiration. He also complains of left shoulder pain. This morning HR was found to be in 40s. Patient was asymptomatic. Stat EKG was ordered which showed Sinus Marco. Patient also states that he feels depressed which he thinks is a major contribution to his weight loss. Objective - Vital Signs/Intake and Output Vital Signs (last 24 hours): Temp Pulse Resp BP Pulse Ox 98.5 F 48 L 20 107/61 99 05/18/17 06:22 05/18/17 14:00 05/18/17 06:22 05/18/17 06:22 05/18/17 00:01 Intake and Output: 05/18/17 05/18/17 06:59 18:59 Intake Total 290 100 Balance 290 100 - Medications Medications: Current Medications Alprazolam (Xanax) 1 mg PO DAILY [facility] Last Admin: 05/18/17 10:17 Dose: 1 mg Heparin Sodium/Dextrose (Heparin 25,000 Units/250ml In D5w) 25,000 units in 250 mls @ 17.023 mls/hr IV .[id number] PRN; Protocol; 18 UNITS/KG/HR PRN Reason: ADJUST RATE PER PROTOCOL Last Admin: 05/18/17 11:41 Dose: 14.06 units/kg/hr, 13.297 mls/hr Oxycodone HCl (Oxycodone Immediate Release Tab) 15 mg PO Q6 PRN PRN Reason: Pain, severe (8-10) Pantoprazole Sodium (Protonix Ec Tab) 20 mg PO 0600,1600 [facility] - Labs Labs: 05/18/17 05:30 05/18/17 05:30 PT 10.9 Seconds (9.9-11.8) 05/17/17 15:38 INR 1.01 (0.93-1.08) 05/17/17 15:38 APTT 51.4 Seconds (23.7-30.8) H 05/18/17 10:30 - Constitutional Appears: Non-toxic, No Acute Distress - Head Exam Head Exam: ATRAUMATIC, NORMOCEPHALIC - Neck Exam Neck Exam: absent: Lymphadenopathy - Respiratory Exam Respiratory Exam: Clear to Ausculation Bilateral. absent: Rales, Rhonchi, Stridor - Cardiovascular Exam Cardiovascular Exam: Bradycardia, +S1, +S2. absent: JVD, Murmur - GI/Abdominal Exam GI & Abdominal Exam: Soft, Normal Bowel Sounds. absent: Tenderness - Skin Skin Exam: Intact Assessment and Plan - Assessment and Plan (Free Text) Assessment: Patient has been S/E. Patient denies any headache, Lightheadedness, Dizziness. Patient complains of fatigue and SOB which he states has not improved since yesterday. Patient states that he still has some pain during inspiration. He also complains of left shoulder pain. This morning HR was found to be in 40s. Patient was asymptomatic. Stat EKG was ordered which showed Sinus Marco. Plan: 1.) SOB 2/2 pulmonary embolism a.) heparin drip b.) pulm on consult c.) f/u with PMD 2.) CP likely 2/2 #1 above, VS unknown etiology a.) Cardio on consult 3. Asymptomatic Sinus Marco a.) Hold Opiod Medications if HR below 50 4.) History of TB a.) Was on Isoniazied for 6 months. b.) Pulm consulted. 5.) Unprovoked weight loss possibly 2/2 malignancy VS anxiety VS colitis VS unknown etiology a.) uncalcified pulmonary nodules identified on CT b.) colon inflammation on CT c.) patient has a hx of anxiety d.) heme onc on consult e.) gi on consult f.) pulm on consult 6.) Hx/O shoulder pain a.) pt on home Percocet (hold if HR below 50) b.) CT scan of left shoulder negative. 7.) Rule out Depression a.)Psych consult 8.) Hx/O Tobacco abuse a.) advise patient on tobacco cessation 9.) GI PPHXS a.) Protonix 10.) DVT PPHXS a.) Heparin drip. Will bridge to Coumadin tomorrow. <Corinne Cervantes B - Last Filed: 05/19/17 14:55> Objective - Vital Signs/Intake and Output Vital Signs (last 24 hours): Temp Pulse Resp BP Pulse Ox 98.5 F 57 L 20 100/66 100 05/19/17 11:47 05/19/17 11:47 05/19/17 11:47 05/19/17 11:47 05/19/17 05:50 Intake and Output: 05/19/17 05/19/17 06:59 18:59 Intake Total 250 Output Total 0 Balance 250 - Labs Labs: 05/19/17 09:00 05/19/17 09:00 PT 10.9 Seconds (9.9-11.8) 05/17/17 15:38 INR 1.01 (0.93-1.08) 05/17/17 15:38 APTT 52.9 Seconds (23.7-30.8) H 05/19/17 09:00 Attending/Attestation - Attestation I have personally seen and examined this patient.: Yes I have fully participated in the care of the patient.: Yes I have reviewed all pertinent clinical information, including history, physical exam and plan: Yes Notes (Text): I have seen and examined patient at bedside. Agree with the above note with the following additions/ exceptions: Briefly this is 52 year old male with history of DVT of LE x2 but has never been on anticoagulation, sinus bradycardia, history of TB, unintentional weight loss, shoulder pain, tobacco use who was admitted for evaluation of shortness of breath secondary to acute PE. Continue heparin drip. Plan to start novel anticoagulants tomorrow. Awaiting hematology consult. He is requesting for psychology consult. Upon discharge patient will follow up with Dr Brady. Dr Corinne Cervantes
--- NOTE | 2017-05-18 17:36 | CARD ---
APPROVED REPORT EKG Measurement Heart [id number] <Conclusion> Marked sinus bradycardia with 1st degree AV block Abnormal ECG
[2017-05-18] MEDS: Pantoprazole 20 mg EC Tab PO SCH (17:52)
[2017-05-19] MEDS: Heparin 25,000units in D5W 25,000 UNITS/250 ML BAG IV PRN (05:03)
[2017-05-19] MEDS: oxyCODONE 15 mg Immediate Release Tab PO PRN ×2 (05:09→11:15)
[2017-05-19] MEDS: Pantoprazole 20 mg EC Tab PO SCH (05:14)
[2017-05-19 05:53] VITALS: O2SAT 100
[2017-05-19 09:20] LABS: HEMOGLOBIN 12.5 gm/dL (14.0-18.0); MEAN CELL VOLUME 83.5 fL (80.0-105.0); MEAN CORPUSCULAR HEMOGLOBIN 28.6 pg (25.0-35.0); MEAN CORPUSCULAR HGB CONC 34.2 g/dl (31.0-37.0); MEAN PLATELET VOLUME 9.2 fl (7.0-11.0); RBC 4.37 10^6/uL (3.5-6.1); RED CELL DISTRIBUTION WIDTH 13.3 % (11.5-14.5); WHITE BLOOD COUNT 5.5 10^3/ul (4.5-11.0)
[2017-05-19 09:29] LABS: ALB/GLOB RATIO 1.6 (1.1-1.8); ALBUMIN 4.1 g/dL (3.0-4.8); ALT/SGPT 25 U/L (7-56); AST/SGOT 19 U/L (15-59); BLOOD UREA NITROGEN 12 mg/dL (7-21); CALCIUM 9.4 mg/dL (8.4-10.5); GFR AFRICAN-AMERICAN > 60; GFR NON-AFRICAN AMERICAN > 60
[2017-05-19] MEDS ORDERED: Potassium Chloride 20 mEq ER Tab PO ONE (09:31)
--- NOTE | 2017-05-19 10:11 | CP.PCM.PN ---
<Elaine Dailey - Last Filed: 05/19/17 12:11> Subjective - Date & Time of Evaluation Date of Evaluation: 05/19/17 Time of Evaluation: 10:00 - Subjective Subjective: GI Follow-up Pt seen and examined bedside at bedside Uneventful overnight Denies any Abd pain] tolerating diet No diarrhea, nausea or vomiting No other complaints other than pain 12-point ROS conducted by myself, other than what is previously stated above, it is neg Objective - Vital Signs/Intake and Output Vital Signs (last 24 hours): Temp Pulse Resp BP Pulse Ox 98.2 F 42 L 19 115/65 100 05/19/17 05:50 05/19/17 05:50 05/19/17 05:50 05/19/17 05:50 05/19/17 05:50 Intake and Output: 05/19/17 05/19/17 06:59 18:59 Intake Total 250 Output Total 0 Balance 250 - Medications Medications: Current Medications Alprazolam (Xanax) 1 mg PO DAILY [facility] Last Admin: 05/19/17 09:21 Dose: 1 mg Heparin Sodium/Dextrose (Heparin 25,000 Units/250ml In D5w) 25,000 units in 250 mls @ 17.023 mls/hr IV .[id number] PRN; Protocol; 18 UNITS/KG/HR PRN Reason: ADJUST RATE PER PROTOCOL Last Admin: 05/19/17 05:03 Dose: 14.06 units/kg/hr, 13.297 mls/hr Oxycodone HCl (Oxycodone Immediate Release Tab) 15 mg PO Q6 PRN PRN Reason: Pain, severe (8-10) Last Admin: 05/19/17 05:09 Dose: 15 mg Pantoprazole Sodium (Protonix Ec Tab) 20 mg PO 0600,1600 [facility] Last Admin: 05/19/17 05:14 Dose: Not Given - Labs Labs: 05/19/17 09:00 05/19/17 09:00 PT 10.9 Seconds (9.9-11.8) 05/17/17 15:38 INR 1.01 (0.93-1.08) 05/17/17 15:38 APTT 52.9 Seconds (23.7-30.8) H 05/19/17 09:00 - Constitutional Appears: Well, No Acute Distress - Head Exam Head Exam: ATRAUMATIC, NORMOCEPHALIC - Eye Exam Eye Exam: Normal appearance - ENT Exam ENT Exam: Mucous Membranes Moist, Normal Exam - Neck Exam Neck Exam: Full ROM, Normal Inspection - Respiratory Exam Respiratory Exam: Clear to Ausculation Bilateral, NORMAL BREATHING PATTERN - Cardiovascular Exam Cardiovascular Exam: REGULAR RHYTHM - GI/Abdominal Exam GI & Abdominal Exam: Soft, Normal Bowel Sounds. absent: Distended, Firm, Guarding, Rigid, Tenderness, Organomegaly - Back Exam Back Exam: NORMAL INSPECTION - Neurological Exam Neurological Exam: Alert, Awake, Oriented x3 - Skin Skin Exam: Dry, Intact, Normal Color, Warm Assessment and Plan - Assessment and Plan (Free Text) Assessment: Kimo Burt is a 52M w/ hx of chronic pain and hemorroids who presents to the ED with new PE. Pt was found to have incidental finding of sigmoid and rectal wall thickening without any symptoms. He has had previous colonoscopies and EGD in the last 2 and 5 years year. According to pt, other than the hemorrhoids there were no acute findings. Pt has also had a significant unintentional weight loss in the last year. Colitis of the sigmoid and rectum Dx: IBD, malignancy, Diverticulitis, infectious (low on diff. due to no other findings), ulcer -Pt is asymptomatic and afebrile since admission -followup as outpt for colonoscopy with his regular PI za 6-8 weeks post discharge for colonoscopy, pt advised to follow-up with us if unable to get in contact with prior GI physician -f/u with PCP Indigestion DDx: GERD, r/o malignancy, dyspepsia -EGD as outpt Constipation -usama 2/2 chronic opoid use -pt states that he is actively weaning off of is percocet -can use miraalax daily, with or without senna or colace Hemorrhoids -avoid constipation -recommend not straining or sitting on toilet basin for extended periods - can take stool softners OTC. Will D/W Dr. Stauffer <Gen Stauffer - Last Filed: 05/19/17 12:34> Objective - Vital Signs/Intake and Output Vital Signs (last 24 hours): Temp Pulse Resp BP Pulse Ox 98.5 F 57 L 20 100/66 100 05/19/17 11:47 05/19/17 11:47 05/19/17 11:47 05/19/17 11:47 05/19/17 05:50 Intake and Output: 05/19/17 05/19/17 06:59 18:59 Intake Total 250 Output Total 0 Balance 250 - Medications Medications: Current Medications Alprazolam (Xanax) 1 mg PO DAILY [facility] Last Admin: 05/19/17 09:21 Dose: 1 mg Heparin Sodium/Dextrose (Heparin 25,000 Units/250ml In D5w) 25,000 units in 250 mls @ 17.023 mls/hr IV .[id number] PRN; Protocol; 18 UNITS/KG/HR PRN Reason: ADJUST RATE PER PROTOCOL Last Admin: 05/19/17 05:03 Dose: 14.06 units/kg/hr, 13.297 mls/hr Oxycodone HCl (Oxycodone Immediate Release Tab) 15 mg PO Q6 PRN PRN Reason: Pain, severe (8-10) Last Admin: 05/19/17 11:15 Dose: 15 mg Pantoprazole Sodium (Protonix Ec Tab) 20 mg PO 0600,1600 [facility] Last Admin: 05/19/17 05:14 Dose: Not Given - Labs Labs: 05/19/17 09:00 05/19/17 09:00 PT 10.9 Seconds (9.9-11.8) 05/17/17 15:38 INR 1.01 (0.93-1.08) 05/17/17 15:38 APTT 52.9 Seconds (23.7-30.8) H 05/19/17 09:00 Attending/Attestation - Attestation I have personally seen and examined this patient.: Yes I have fully participated in the care of the patient.: Yes I have reviewed all pertinent clinical information, including history, physical exam and plan: Yes Notes (Text): 05/19/17 12:30 52 year old male with h/o chronic MSK pain admitted with fatigue/dysphnea, found to have PE. Also reports significant weight loss in the past year. 1. Unintentional weight loss 2. Abnormal CT scan of the GI tract 3. Constipation 4. Indigestion Plan: - Diet as tolerated - Continue anticoagulation - Considering unexplained weight loss in patient with heavy smoking history and new onset PE, malignancy must be ruled out. Would suggest elective outpatient endoscopic evaluation following resolution of acute issues - patient states that he will go [place] [facility] [place] endoscopy after [place] - continue bowel regimen for constipation -continue ppi for indigestion as needed -will sign off at this time
[2017-05-19 11:48] VITALS: BP 100/66; PULSE 57; RESP 20; TEMP 98.5
--- NOTE | 2017-05-19 13:55 | CP.PCM.DIS ---
<Diogenes Sanderson - Last Filed: 05/19/17 13:52> Provider - Provider Date of Admission: 05/17/17 19:15 Attending physician: Corinne Cervantes MD Primary care physician: Garo Brady MD Consults: Gi - Dr. Casimiro Meyers - Dr. Barbosa Heme Dr. Mcguire Cardio - Dr. Curry Time Spent in preparation of Discharge (in minutes): 35 Hospital Course - Lab Results Lab Results: Most Recent Lab Values WBC 5.5 10^3/ul (4.5-11.0) 05/19/17 09:00 RBC 4.37 10^6/uL (3.5-6.1) 05/19/17 09:00 Hgb 12.5 gm/dL (14.0-18.0) L 05/19/17 09:00 Hct 36.5 % (42.0-52.0) L 05/19/17 09:00 MCV 83.5 fL (80.0-105.0) 05/19/17 09:00 MCH 28.6 pg (25.0-35.0) 05/19/17 09:00 MCHC 34.2 g/dl (31.0-37.0) 05/19/17 09:00 RDW 13.3 % (11.5-14.5) 05/19/17 09:00 Plt Count 160 10^3/uL (120.0-450.0) 05/19/17 09:00 MPV 9.2 fl (7.0-11.0) 05/19/17 09:00 Gran % 59.0 % (50.0-68.0) 05/18/17 05:30 Lymph % (Auto) 30.9 % (22.0-35.0) 05/18/17 05:30 [place] % (Auto) 8.1 % (1.0-6.0) H 05/18/17 05:30 Eos % (Auto) 1.8 % (1.5-5.0) 05/18/17 05:30 Baso % (Auto) 0.2 % (0.0-3.0) 05/18/17 05:30 Gran # 3.36 (1.4-6.5) 05/18/17 05:30 Lymph # 1.8 (1.2-3.4) 05/18/17 05:30 [place] # 0.5 (0.1-0.6) 05/18/17 05:30 Eos # 0.1 (0.0-0.7) 05/18/17 05:30 Baso # 0.01 K/mm3 (0.0-2.0) 05/18/17 05:30 PT 10.9 Seconds (9.9-11.8) 05/17/17 15:38 INR 1.01 (0.93-1.08) 05/17/17 15:38 APTT 52.9 Seconds (23.7-30.8) H 05/19/17 09:00 Sodium 142 mmol/L (132-148) 05/19/17 09:00 Potassium 3.5 mmol/L (3.6-5.0) L 05/19/17 09:00 Chloride 107 mmol/L (98-107) 05/19/17 09:00 Carbon Dioxide 25 mmol/L (21-33) 05/19/17 09:00 Anion Gap 14 (10-20) 05/19/17 09:00 BUN 12 mg/dL (7-21) 05/19/17 09:00 Creatinine 0.9 mg/dL (0.5-1.4) 05/19/17 09:00 Est GFR ( Amer) > 60 05/19/17 09:00 Est GFR (Non-Af Amer) > 60 05/19/17 09:00 Random Glucose 116 mg/dL (70-110) H 05/19/17 09:00 Calcium 9.4 mg/dL (8.4-10.5) 05/19/17 09:00 Magnesium 2.1 mg/dL (1.7-2.2) 05/17/17 15:38 Total Bilirubin 0.6 mg/dL (0.2-1.3) 05/19/17 09:00 Direct Bilirubin 0.3 mg/dL (0.0-0.4) 05/17/17 15:38 AST 19 U/L (15-59) 05/19/17 09:00 ALT 25 U/L (7-56) 05/19/17 09:00 Alkaline Phosphatase 42 U/L (38-133) 05/19/17 09:00 Lactate Dehydrogenase 318 U/L (333-699) L 05/17/17 15:38 Total Creatine Kinase 85 U/L (35-230) 05/17/17 15:38 Troponin I < 0.01 ng/mL 05/17/17 15:38 NT-Pro-B Natriuret Pep 89.4 pg/mL (0-450) 05/17/17 15:38 Total Protein 6.5 g/dL (5.8-8.3) 05/19/17 09:00 Albumin 4.1 g/dL (3.0-4.8) 05/19/17 09:00 Globulin 2.5 gm/dL 05/19/17 09:00 Albumin/Globulin Ratio 1.6 (1.1-1.8) 05/19/17 09:00 Lipase 49 U/L (23-300) 05/17/17 15:38 TSH 3rd Generation 0.83 mIU/mL (0.46-4.68) 05/17/17 15:38 Urine Color Yellow (YELLOW) 05/17/17 16:00 Urine Appearance Clear (CLEAR) 05/17/17 16:00 Urine pH 8.5 (4.7-8.0) 05/17/17 16:00 Ur Specific [place] 1.010 (1.005-1.035) 05/17/17 16:00 Urine Protein Negative mg/dL (<30 mg/dL) 05/17/17 16:00 Urine Glucose (UA) Negative mg/dL (NEGATIVE) 05/17/17 16:00 Urine Ketones Negative mg/dL (NEGATIVE) 05/17/17 16:00 Urine Blood Negative (NEGATIVE) 05/17/17 16:00 Urine Nitrate Negative (NEGATIVE) 05/17/17 16:00 Urine Bilirubin Negative (NEGATIVE) 05/17/17 16:00 Urine Urobilinogen 0.2 E.U./dL (<1 E.U./dL) 05/17/17 16:00 Ur Leukocyte Esterase Negative Parth/uL (NEGATIVE) 05/17/17 16:00 - Hospital Course Hospital Course: This patient is a 55 year old male with a PMHx of a 15pack/ year tobacco use and Right sided shoulder pain (takes Percocet 15) who presented to the ED with complaints of SOB x 2 months which has gotten worse 2-3 days prior to ED visit, and shoulder pain post a pre-syncopal episode. Patient states that he almost passed out in the shower and had to stabilize himself by holding on to the railing which caused him to hurt his shoulder. Left Shoulder X-ray showed mild DJD at the AC joint. CT of Chest/Abd/Pelvis showed evidence of PE, colonic diverticula and mild wall thickening of the sigmoid colon and rectum. GI, Pulm , and Heme were consulted and patient began treatment for PE. During stay, patient had intermittent episodes of bradycardia in the 40s. Cardio was consulted. Pain medications were held for HR < 60. During stay patient also mentioned 80lbs weight loss within the past year and hx of TB. Further investigation revealed patient was treated for TB with Isoniazid for 6 months. Patient was placed on Heparin Drip for treatment of PE, and will start Eliquis 5mg BID for his outpatient anticoagulation regiment. Patient is to follow up with his Primary physician (Dr. Brady), GI, and Heme in the outpatient setting. Medications and Plan were reviewed with patient and he is agreeable to it. Patient seen, reviewed and discussed with Attending. Diogenes Sanderson PGY-1 Pager: - Date & Time of H&P Date of H&P: 05/19/17 Time of H&P: 08:00 Discharge Exam - Head Exam Head Exam: ATRAUMATIC, NORMOCEPHALIC - Eye Exam Eye Exam: EOMI, Normal appearance - Respiratory Exam Respiratory Exam: Clear to PA & Lateral. absent: Rales, Rhonchi, Wheezes, Stridor - Cardiovascular Exam Cardiovascular Exam: REGULAR RHYTHM, +S1, +S2. absent: JVD - GI/Abdominal Exam GI & Abdominal Exam: Normal Bowel Sounds, Soft. absent: Tenderness - Extremities Exam Additional comments: no pedal edema - Neurological Exam Neurological exam: Alert, Oriented x3 - Psychiatric Exam Psychiatric exam: Normal Affect, Normal Mood Discharge Plan - Discharge Medications Prescriptions: Apixaban [Eliquis] 5 mg PO BID #30 tablet - Follow Up Plan Condition: FAIR Disposition: HOME/ ROUTINE Instructions: Apixaban (By mouth), Pulmonary Embolism (DC), How to Stop Smoking (GEN), Syncope (GEN), Cigarette Smoking and Your Health (GEN), Dizziness (GEN) Additional Instructions: Discharge instructions: please follow up with primary physician within one week and follow up with Dr. Mcguire within one week. Please start new medication "ELIQUIS" TODAY. If condition occurs again, go to the nearest emergency room. Please do not drive and/or operate heavy machinery when taking pain medications. diet: Heart Healthy diet Patient states he is up to date with regards to the flu and the pneumococcal vaccines. Referrals: Garo Brady MD [Primary Care Provider] - <Corinne Cervantes - Last Filed: 05/21/17 14:03> Provider - Provider Date of Admission: 05/17/17 19:15 Attending physician: Corinne Cervantes MD Primary care physician: Garo Brady MD Hospital Course - Lab Results Lab Results: Most Recent Lab Values WBC 5.5 10^3/ul (4.5-11.0) 05/19/17 09:00 RBC 4.37 10^6/uL (3.5-6.1) 05/19/17 09:00 Hgb 12.5 gm/dL (14.0-18.0) L 05/19/17 09:00 Hct 36.5 % (42.0-52.0) L 05/19/17 09:00 MCV 83.5 fL (80.0-105.0) 05/19/17 09:00 MCH 28.6 pg (25.0-35.0) 05/19/17 09:00 MCHC 34.2 g/dl (31.0-37.0) 05/19/17 09:00 RDW 13.3 % (11.5-14.5) 05/19/17 09:00 Plt Count 160 10^3/uL (120.0-450.0) 05/19/17 09:00 MPV 9.2 fl (7.0-11.0) 05/19/17 09:00 Gran % 59.0 % (50.0-68.0) 05/18/17 05:30 Lymph % (Auto) 30.9 % (22.0-35.0) 05/18/17 05:30 [place] % (Auto) 8.1 % (1.0-6.0) H 05/18/17 05:30 Eos % (Auto) 1.8 % (1.5-5.0) 05/18/17 05:30 Baso % (Auto) 0.2 % (0.0-3.0) 05/18/17 05:30 Gran # 3.36 (1.4-6.5) 05/18/17 05:30 Lymph # 1.8 (1.2-3.4) 05/18/17 05:30 [place] # 0.5 (0.1-0.6) 05/18/17 05:30 Eos # 0.1 (0.0-0.7) 05/18/17 05:30 Baso # 0.01 K/mm3 (0.0-2.0) 05/18/17 05:30 PT 10.9 Seconds (9.9-11.8) 05/17/17 15:38 INR 1.01 (0.93-1.08) 05/17/17 15:38 APTT 52.9 Seconds (23.7-30.8) H 05/19/17 09:00 Protein C Antigen 86 % (70-140) 05/17/17 20:05 Protein C Activity 90 % (70-180) 05/17/17 20:05 Protein S Activity 74 % (70-150) 05/17/17 20:05 Protein S Antigen 78 % (70-140) 05/17/17 20:05 Antithrombin III Activ 98 % activity (80-120) 05/17/17 20:05 von Willebrand Antigen 135 % (50-217) 05/17/17 20:05 Sodium 142 mmol/L (132-148) 05/19/17 09:00 Potassium 3.5 mmol/L (3.6-5.0) L 05/19/17 09:00 Chloride 107 mmol/L (98-107) 05/19/17 09:00 Carbon Dioxide 25 mmol/L (21-33) 05/19/17 09:00 Anion Gap 14 (10-20) 05/19/17 09:00 BUN 12 mg/dL (7-21) 05/19/17 09:00 Creatinine 0.9 mg/dL (0.5-1.4) 05/19/17 09:00 Est GFR ( Amer) > 60 05/19/17 09:00 Est GFR (Non-Af Amer) > 60 05/19/17 09:00 Random Glucose 116 mg/dL (70-110) H 05/19/17 09:00 Calcium 9.4 mg/dL (8.4-10.5) 05/19/17 09:00 Magnesium 2.1 mg/dL (1.7-2.2) 05/17/17 15:38 Total Bilirubin 0.6 mg/dL (0.2-1.3) 05/19/17 09:00 Direct Bilirubin 0.3 mg/dL (0.0-0.4) 05/17/17 15:38 AST 19 U/L (15-59) 05/19/17 09:00 ALT 25 U/L (7-56) 05/19/17 09:00 Alkaline Phosphatase 42 U/L (38-133) 05/19/17 09:00 Lactate Dehydrogenase 318 U/L (333-699) L 05/17/17 15:38 Total Creatine Kinase 85 U/L (35-230) 05/17/17 15:38 Troponin I < 0.01 ng/mL 05/17/17 15:38 NT-Pro-B Natriuret Pep 89.4 pg/mL (0-450) 05/17/17 15:38 Total Protein 6.5 g/dL (5.8-8.3) 05/19/17 09:00 Albumin 4.1 g/dL (3.0-4.8) 05/19/17 09:00 Globulin 2.5 gm/dL 05/19/17 09:00 Albumin/Globulin Ratio 1.6 (1.1-1.8) 05/19/17 09:00 Lipase 49 U/L (23-300) 05/17/17 15:38 TSH 3rd Generation 0.83 mIU/mL (0.46-4.68) 05/17/17 15:38 Urine Color Yellow (YELLOW) 05/17/17 16:00 Urine Appearance Clear (CLEAR) 05/17/17 16:00 Urine pH 8.5 (4.7-8.0) 05/17/17 16:00 Ur Specific [place] 1.010 (1.005-1.035) 05/17/17 16:00 Urine Protein Negative mg/dL (<30 mg/dL) 05/17/17 16:00 Urine Glucose (UA) Negative mg/dL (NEGATIVE) 05/17/17 16:00 Urine Ketones Negative mg/dL (NEGATIVE) 05/17/17 16:00 Urine Blood Negative (NEGATIVE) 05/17/17 16:00 Urine Nitrate Negative (NEGATIVE) 05/17/17 16:00 Urine Bilirubin Negative (NEGATIVE) 05/17/17 16:00 Urine Urobilinogen 0.2 E.U./dL (<1 E.U./dL) 05/17/17 16:00 Ur Leukocyte Esterase Negative Parth/uL (NEGATIVE) 05/17/17 16:00 Phosphatidylserine IgG <10 U/mL (<10) 05/17/17 20:05 Phosphatidylserine IgA <20 U/mL (<20) 05/17/17 20:05 Phosphatidylserine IgM <25 U/mL (<25) 05/17/17 20:05 Anti-Cardiolipin IgG Ab <14 GPL (<=14) 05/17/17 20:05 Anti-Cardiolipin IgA Ab <11 APL (<=11) 05/17/17 20:05 Anti-Cardiolipin IgM Ab 35 MPL (<=12) H 05/17/17 20:05 Attending/Attestation - Attestation I have personally seen and examined this patient.: Yes I have fully participated in the care of the patient.: Yes I have reviewed all pertinent clinical information, including history, physical exam and plan: Yes Notes (Text): I have seen and examined the patient at bedside. Agree with the discharge summary dictated above with the following additions/ exceptions:Briefly this is 52 year old male with history of DVT of LE x2 but has never been on anticoagulation, sinus bradycardia, history of TB s/p INH tx, unintentional weight loss, shoulder pain, tobacco use who was admitted for evaluation of shortness of breath secondary to acute PE. He was given IV heparin drip. Hematology consult was obtained and eliquis was started. Patient was offered meds to beds however he wanted to use his own pharmacy [facility]. All scripts were sent to his preferred pharmacy. Patient wanted to be discharged lesvia. Patients is at the bedside and understand that he needs to be started on eliquis today. Patient informed us that she will roll picker his medication today. Patient will follow up with Dr Brady and Dr Kramer. We tried to contact PMD however his phone was not working. Patients was informed about that. Dr Corinne Cervantes
--- NOTE | 2017-05-19 14:13 | CP.PCM.CON ---
History of Present Illness - History of Present Illness History of Present Illness: Shortly patient is 52 years old male, not known previous psychiatric history, patient was admitted on the medical side for evaluation of dizziness, near syncopal episode. Patient has weight loss, medical team called for psychiatric evaluation for possible depressive symptoms, moreover patient was on Xanax in the community. Patient was seen and examined today discussed with the patient , patient gave permission to talk to her. Patient seems to be surprised by the fact that this commercial lines underwriter is seeing him, patient reported that he has no history of being depressed, denied history or suicidal attempts. patient reported this January patient was admitted to [facility] psychiatric inpatient unit because he had delirium stage, was aggressive, from the patient reported he had steroid in treatment for his are, patient said that he stayed in to the psychiatric inpatient unit for 16 hours, then was discharged. Patient reported that he has a lot of medical issues which prevents patient from working, patient said that family has financial problems right now and he feels depressed about that, patient also reported that he feels depressed because of his medical issues, patient denied feeling hopeless, denied thoughts of harming himself or others. he shouldn't has future oriented plans, patient said that he wants to go for computer classes, and to find a new job. Patient has transient exciting for what patient was on Xanax, patient primary care physician started Lexapro, patient said that his anxiety became worse, discontinue the medication. Patient denied hearing voices denied seeing things denied paranoid ideations. Patient denied using drugs but reported smoking, counseling provided. Patient confirmed the story, was appreciated, expressed no concerns about patient's safety. labs reviewed Mental status examination: Patient presented to have good personal hygiene, with ADLs, good eye contact, speech was normal of rate" in quantity, well related to this commercial lines underwriter, mood described "I feel depressed because of her medical issues as well as finances", patient's affect was constricted but reactive, mood congruent. Thought process was coherent and goal directed. Thought content: Patient denied visual, auditory , tactile hallucinations, denied paranoid ideations, denied thoughts of harming himself or others. Insight and judgment are fair, impulses are well controlled. Patient was offered follow up with therapist, patient expressed his interest, [facility], [facility] outpatient clinic' s contact information was provided, patient also was provided with private therapist contact info Helga Carcamo. Impression: Rule out mood disorder due to general medical condition Rule out adjustment disorder with depressed and anxious mood Plan: Continue current management Patient is not in imminent danger to self or others Patient expressed his interest to see therapist as outpatient, information about local providers given patient adamantly denied thoughts of harming himself or others denied intent or plan This commercial lines underwriter will sign off Thank you very much for lisinopril speak and carefully patient Past Patient History - Infectious Disease Hx of Infectious Diseases: None - Tetanus Immunizations Tetanus Immunization: Unknown - Past Medical History & Family History Past Medical History?: Yes - Past Social History Smoking Status: Current Some Days Smoker - CARDIAC Hx Cardiac Disorders: No - PULMONARY Hx Respiratory Disorders: No Hx Bronchitis: Yes - NEUROLOGICAL Hx Neurological Disorder: No - HEENT Hx HEENT Problems: No - RENAL Hx Chronic Kidney Disease: No - ENDOCRINE/METABOLIC Hx Endocrine Disorders: No - HEMATOLOGICAL/ONCOLOGICAL Hx Blood Disorders: No - INTEGUMENTARY Hx Dermatological Problems: No - MUSCULOSKELETAL/RHEUMATOLOGICAL Hx Falls: No - GASTROINTESTINAL Hx Gastrointestinal Disorders: No - GENITOURINARY/GYNECOLOGICAL Hx Genitourinary Disorders: No - PSYCHIATRIC Hx Psychophysiologic Disorder: No Hx Depression: No Hx Emotional Abuse: No Hx Physical Abuse: No - SURGICAL HISTORY Hx Cardiac Catheterization: Yes Other/Comment: hemorrhoid surgery, 5 avusion fx, right rotator cuff surgery - ANESTHESIA Hx Anesthesia: Yes Hx Anesthesia Reactions: No Meds Home Medications: Home Medication List Medication Instructions Recorded Confirmed Type Apixaban [Eliquis] 5 mg PO BID #30 tablet 05/19/17 Rx Allergies/Adverse Reactions: Allergies Allergy/AdvReac Type Severity Reaction Status Date / Time amoxicillin trihydrate Allergy ANAPHYLAXIS Verified 05/17/17 15:10 [From Augmentin] potassium clavulanate Allergy ANAPHYLAXIS Verified 05/17/17 15:10 [From Augmentin] prednimustine Allergy RASH Verified 05/17/17 18:26 prednisolone Allergy RASH Verified 05/17/17 18:26 prednisolone acetate, Allergy RASH Verified 05/17/17 18:26 micronized prednisone Allergy RASH Verified 05/17/17 18:26 prednylidene Allergy RASH Verified 05/17/17 18:26 prednison Allergy RASH Uncoded 05/17/17 18:26 - Medications Medications: Current Medications Alprazolam (Xanax) 1 mg PO DAILY [facility] Last Admin: 05/19/17 09:21 Dose: 1 mg Oxycodone HCl (Oxycodone Immediate Release Tab) 15 mg PO Q6 PRN PRN Reason: Pain, severe (8-10) Last Admin: 05/19/17 11:15 Dose: 15 mg Pantoprazole Sodium (Protonix Ec Tab) 20 mg PO 0600,1600 [facility] Last Admin: 05/19/17 05:14 Dose: Not Given Results - Vital Signs Recent Vital Signs: Last Vital Signs Temp 98.5 F 05/19/17 11:47 Pulse 57 L 05/19/17 11:47 Resp 20 05/19/17 11:47 BP 100/66 05/19/17 11:47 Pulse Ox 100 05/19/17 05:50 - Labs Result Diagrams: 05/19/17 09:00 05/19/17 09:00 Labs: Laboratory Results - last 24 hr 05/18/17 05/19/17 05/19/17 15:37 09:00 09:00 WBC 5.5 RBC 4.37 Hgb 12.5 L Hct 36.5 L MCV 83.5 MCH 28.6 MCHC 34.2 RDW 13.3 Plt Count 160 MPV 9.2 APTT 54.0 H Sodium 142 Potassium 3.5 L Chloride 107 Carbon Dioxide 25 Anion Gap 14 BUN 12 Creatinine 0.9 Est GFR ( Amer) > 60 Est GFR (Non-Af Amer) > 60 Random Glucose 116 H Calcium 9.4 Total Bilirubin 0.6 AST 19 ALT 25 Alkaline Phosphatase 42 Total Protein 6.5 Albumin 4.1 Globulin 2.5 Albumin/Globulin Ratio 1.6 05/19/17 09:00 WBC RBC Hgb Hct MCV MCH MCHC RDW Plt Count MPV APTT 52.9 H Sodium Potassium Chloride Carbon Dioxide Anion Gap BUN Creatinine Est GFR ( Amer) Est GFR (Non-Af Amer) Random Glucose Calcium Total Bilirubin AST ALT Alkaline Phosphatase Total Protein Albumin Globulin Albumin/Globulin Ratio
[2017-05-21 04:25] LABS: CARDIOLIPIN AB (IGA) <11 APL (<=11); CARDIOLIPIN AB (IGG) <14 GPL (<=14)
[2017-05-21 11:15] LABS: VON WILLERBRAND FACTOR AG 135 % (50-217)
[2017-05-21 12:53] LABS: PHOSPHATIDYLSERINE AB IGG <10 U/mL (<10); PHOSPHATIDYLSERINE AB IGM <25 U/mL (<25)
[2017-05-21 21:04] LABS: B2 GLYCOPROTEIN I AB(IGA) <9 SAU (<=20); B2 GLYCOPROTEIN I AB(IGG) <9 SGU (<=20); B2 GLYCOPROTEIN I AB(IGM) <9 SMU (<=20); CARDIOLIPIN AB (IGM) 35 MPL (<=12); PHOSPHATIDYLSERINE AB IGA <20 U/mL (<20)
== END 2017-05-19 14:22 | disposition home or self-care (01) ==
LOC: ED 15:01 → INTOOBSV 19:15 → ERH 19:15 → 2RNO 20:34
PROVIDERS: ADMIT Internal Medicine; ATTEND Hospitalist
DX: I26.99 Other pulmonary embolism without acute cor pulmonale (principal); F11.10 Opioid abuse, uncomplicated; G89.29 Other chronic pain; K59.03 Drug induced constipation; T40.605A Adverse effect of unspecified narcotics, initial encounter; K52.9 Noninfective gastroenteritis and colitis, unspecified; K30 Functional dyspepsia; M19.012 Primary osteoarthritis, left shoulder; K57.30 Diverticulosis of large intestine without perforation or abscess without bleeding; F41.0 Panic disorder [episodic paroxysmal anxiety]; I51.7 Cardiomegaly; R63.4 Abnormal weight loss; N28.1 Cyst of kidney, acquired; M25.511 Pain in right shoulder; F10.10 Alcohol abuse, uncomplicated; K64.9 Unspecified hemorrhoids; Z86.11 Personal history of tuberculosis; Z87.891 Personal history of nicotine dependence
CPT/HCPCS: 36415; 71260; 73030; 73200; 74177; 80053; 81003; 81241; 82248; 82550; 83615; 83690; 83735; 83880; 84443; 84484; 85025; 85027; 85246; 85300; 85303; 85305; 85306; 85610; 85730; 86146; 86147; 86148; 93005; 96361; 96374; 96375; 99285; G0378; J1170; J1644; J2270; J7040; Q9966; Q9967

== ENCOUNTER 2017-05-21 00:44 | Emergency (ER) | payer OTHER ==
[2017-05-21 00:44] VITALS: BMI 27.5
[2017-05-21 01:00] VITALS: PULSE 56; TEMP 97.3
[2017-05-21] MEDS ORDERED: HYDROmorphone 2 mg/ml ISec IVP STA ×2 (01:31→02:33)
--- NOTE | 2017-05-21 01:44 | ED PDOC ---
Arrival/HPI - General Chief Complaint: Chest Pain Time Seen by Provider: 05/21/17 01:05 Historian: Patient, Spouse - History of Present Illness Narrative History of Present Illness (Text): 05/21/17 01:21 Kimo Burt is a 52 year old male, with a history of right shoulder surgery, presents to the emergency department accompanied by his complaining of chest pain and shortness of breath. Patient was seen in the emergency department 05/17/17 for shortness of breath, was diagnosed with right sided pulmonary embolism, and hospitalized. His reports patient was discharged on 05/19/17 and has been experiencing right-sided chest pain, shortness of breath, and headache. also reports that patient regularly takes Eliquis. Patient also reports some testicular discomfort. Patient denies any fever, chills cough, nausea, vomiting, diarrhea, diaphoresis, jaw pain, or other complaints. Time/Duration: < week (5 days) Symptom Onset: Gradual Symptom Course: Unchanged Activities at Onset: Rest Modifying Factors (Text): None Context: Home Past Medical History - Provider Review Nursing Documentation Reviewed: Yes - Infectious Disease Hx of Infectious Diseases: None - Tetanus Immunization Tetanus Immunization: Unknown - Past Medical History Past Medical History: No Previous - Cardiac Hx Cardiac Disorders: No Other/Comment: low bp - Pulmonary Hx Respiratory Disorders: No Hx Bronchitis: Yes Hx Pulmonary Embolism: Yes (right) - Neurological Hx Neurological Disorder: No - HEENT Hx HEENT Disorder: No - Renal Hx Renal Disorder: No - Endocrine/Metabolic Hx Endocrine Disorders: No - Hematological/Oncological Hx Blood Disorders: No - Integumentary Hx Dermatological Disorder: No - Musculoskeletal/Rheumatological Hx Musculoskeletal Disorders: No Hx Falls: No - Gastrointestinal Hx Gastrointestinal Disorders: No - Genitourinary/Gynecological Hx Genitourinary Disorders: No - Psychiatric Hx Psychophysiologic Disorder: No Hx Depression: No Hx Emotional Abuse: No Hx Physical Abuse: No Hx Substance Use: No - Past Surgical History Past Surgical History: No Previous - Surgical History Hx Cardiac Catheterization: Yes Hx Orthopedic Surgery: Yes (right shouldert) Other/Comment: hemorrhoid surgery, 5 avusion fx, right rotator cuff surgery - Anesthesia Hx Anesthesia: Yes Hx Anesthesia Reactions: No - Suicidal Assessment Feels Threatened In Home Enviroment: No Family/Social History - Physician Review Nursing Documentation Reviewed: Yes Family/Social History: Unknown Family HX Smoking Status: Current Some Days Smoker Hx Alcohol Use: Yes Frequency of alcohol use: Socially Amount per day: 2 Hx Substance Use: No Hx Substance Use Treatment: No Allergies/Home Meds Allergies/Adverse Reactions: Allergies amoxicillin trihydrate [From Augmentin] Allergy (Verified 05/21/17 17:33) ANAPHYLAXIS potassium clavulanate [From Augmentin] Allergy (Verified 05/21/17 17:33) ANAPHYLAXIS prednimustine Allergy (Verified 05/21/17 17:33) RASH prednisolone Allergy (Verified 05/21/17 17:33) RASH prednisolone acetate, micronized Allergy (Verified 05/21/17 17:33) RASH prednisone Allergy (Verified 05/21/17 17:33) RASH prednylidene Allergy (Verified 05/21/17 17:33) RASH prednison Allergy (Uncoded 05/21/17 17:33) RASH Home Medications: Home Meds Medication Instructions Recorded Confirmed ALPRAZolam HALF TABLET [Xanax] 1 mg PO DAILY 01/05/17 05/21/17 Oxycodone HCl [Roxicodone] 15 mg PO Q6 PRN 01/05/17 05/21/17 Review of Systems - Physician Review All systems were reviewed & negative as marked: Yes - Review of Systems Constitutional: Fevers Eyes: Normal ENT: absent: Rhinorrhea Respiratory: SOB, Other (right lung pain). absent: Cough Cardiovascular: Chest Pain. absent: Syncope Gastrointestinal: absent: Abdominal Pain, Diarrhea, Nausea, Vomiting Genitourinary Male: Other (+testicular discomfort) Musculoskeletal: Normal. absent: Neck Pain Skin: Normal. absent: Rash Neurological: Headache Endocrine: absent: Diaphoresis Hemo/Lymphatic: Normal Psychiatric: Normal Physical Exam Vital Signs Reviewed: Yes Vital Signs Temp Pulse Resp BP Pulse Ox 05/21/17 05:05 56 L 16 120/66 99 05/21/17 00:54 97.3 F L 56 L 18 114/76 100 Temperature: Afebrile Blood Pressure: Normal Pulse: Bradycardic Respiratory Rate: Normal Appearance: Positive for: Well-Appearing, Non-Toxic, Comfortable Pain Distress: None Mental Status: Positive for: Alert and Oriented X 3 - Systems Exam Head: Present: Atraumatic, Normocephalic Pupils: Present: PERRL Extroacular Muscles: Present: EOMI Conjunctiva: Present: Normal Mouth: Present: Moist Mucous Membranes Pharnyx: Present: Normal Neck: Present: Normal Range of Motion Respiratory/Chest: Present: Good Air Exchange, Rhonchi (right lower lung) Cardiovascular: Present: Regular Rate and Rhythm, Normal S1, S2. No: Murmurs Abdomen: Present: Normal Bowel Sounds. No: Tenderness, Distention, Peritoneal Signs Genitourinary Male: Present: Normal External Genitalia. No: Penile Discharge, Testicle Tenderness, Masses, Hernias, Testicle Swelling Upper Extremity: Present: Normal Inspection. No: Cyanosis, Edema Lower Extremity: Present: Normal Inspection. No: Edema Neurological: Present: GCS=15, CN II-XII Intact, Speech Normal, Motor Func Grossly Intact, Normal Sensory Function Skin: Present: Warm, Dry, Normal Color. No: Rashes Psychiatric: Present: Alert, Oriented x 3, Normal Insight, Normal Concentration Medical Decision Making ED Course and Treatment: 05/21/17 01:21 Impression: 52 year old male with shortness of breath Plan: -- EKG -- Chest X-ray -- Testicular Ultrasound -- Labs -- Dilaudid -- Reassess and disposition EKG: Ordered, reviewed, and independently interpreted the EKG. Rate : 60 BPM Rhythm : NSR Interpretation : first degree AV block. Non specific ST/T changes. Chest X-ray: No acute processes. 05/21/17 03:48 Reviewed sono: US Duplex Testes shows: Right testicle: Unremarkable in echogenicity and size measuring 4.1 x 1.6 x 3.3 cm. No mass. No torsion. A small right-sided hydrocele is present. Left testicle: Unremarkable in echogenicity and size measuring 4.3 x 1.4 x 2.9 cm. No mass. No torsion. Epididymides: Unremarkable in echogenicity and size. Scrotum: Unremarkable. IMPRESSION: Small right-sided hydrocele. Otherwise, unremarkable sonographic evaluation of the scrotum, as detailed above. 05/21/17 04:56 Reviewed CTA Chest, shows: Small filling defect within a peripheral branch of the right descending pulmonary artery, and new from prior study. No evidence of right heart strain. 05/21/17 05:[address] Mejía, who is aware and agrees with plan. Discussed results and plans with patient, pt was offered hospital admission for further evaluation. Patient now states he does not wish to stay, states he has an appointment at 08:00 and will return to the ER after. The patient is choosing to leave against medical advice. I have personally explained to the patient that choosing to do so may result in permanent bodily harm or . I have discussed at great length that without further evaluation and monitoring there may be unforeseen circumstances and/or deterioration causing permanent bodily harm or as a result of their choice. The patient is alert, oriented , and shows the mental capacity to make clear decisions regarding the patients health care at this time. The patient continues to wish to leave against medical advice. In light of the patients decision to leave against medical advice, the patient is aware of the importance to following up as instructed. The patient has been advised that they should return to the emergency room immediately if they change their mind at any time, or if their condition begins to change or worsen in any way. - Lab Interpretations Lab Results: 05/21/17 01:58 05/21/17 01:58 Lab Results 05/21/17 05:12: Urine Color Yellow, Urine Appearance Clear, Urine pH 6.5, Ur Specific [place] 1.025, Urine Protein Trace H, Urine Glucose (UA) Negative, Urine Ketones Trace H, Urine Blood Negative, Urine Nitrate Negative, Urine Bilirubin Negative, Urine Urobilinogen 1.0 H, Ur Leukocyte Esterase Negative, Urine RBC 0 - 2, Urine WBC 0 - 2, Ur Epithelial Cells 0 - 2, Calcium Oxalate Crystal Small 05/21/17 01:58: WBC 7.1 D, RBC 4.48, Hgb 13.0 L, Hct 36.9 L, MCV 82.4, MCH 29.0 , MCHC 35.2, RDW 13.7, Plt Count 173, MPV 9.2 05/21/17 01:58: Sodium 141, Potassium 3.7, Chloride 109 H, Carbon Dioxide 22, Anion Gap 14, BUN 17, Creatinine 0.9, Est GFR ( Amer) > 60, Est GFR (Non- Af Amer) > 60, Random Glucose 92, Calcium 9.4, Total Bilirubin 0.6, AST 19, ALT 28, Alkaline Phosphatase 44, Lactate Dehydrogenase 286 L, Total Creatine Kinase 40, Troponin I < 0.01, Total Protein 6.4, Albumin 3.9, Globulin 2.5, Albumin/ Globulin Ratio 1.6 05/21/17 01:58: PT 11.2, INR 1.04, APTT 28.8 I have reviewed the lab results: Yes - RAD Interpretation Narrative RAD Interpretations (Text): CTA Chest shows: Pulmonary arteries: A filling defect is identified within a peripheral branch of the right descending pulmonary artery (series 2, images 150 through 160). This finding is new from prior study. No filling defects are detected within the main, proximal or remaining segmental pulmonary arteries. Aorta: No thoracic aortic aneurysm. Lungs: No mass. No consolidation. Pleural spaces: No significant effusion. No pneumothorax. Heart: No cardiomegaly. No significant pericardial effusion. Flattening of the interventricular septum is identified, without discrete bowling of the interventricular septum. No reflux of intravenous contrast is detected into the hepatic veins. Bones: No acute fracture. Lymph nodes: No pathologically enlarged lymph nodes. IMPRESSION: Small filling defect within a peripheral branch of the right descending pulmonary artery, and new from prior study. No evidence of right heart strain. Radiology Orders: 05/21/17 01:29 CHEST PORTABLE [RAD] Stat 05/21/17 02:19 TESTES DUPLEX COMPLETE [US] Stat 05/21/17 03:59 ANGIO CHEST PE PROTOCOL [CT] Stat Relationship Counselor: ED Physician, Radiologist - EKG Interpretation Interpreted by ED Physician: Yes Type: 12 lead EKG - Medication Orders Current Medication Orders: Discontinued Medications Hydromorphone HCl (Dilaudid) 2 mg IVP STAT STA Stop: 05/21/17 01:32 Last Admin: 05/21/17 02:03 Dose: 2 mg Hydromorphone HCl (Dilaudid) 2 mg IVP STAT STA Stop: 05/21/17 02:34 Last Admin: 05/21/17 02:47 Dose: 2 mg Iodixanol (Visipaque 320 Mg/Ml 100 Ml) Confirm Administered Dose 100 ml IV .STK- MED ONE Stop: 05/21/17 04:03 - Scribe Statement The provider has reviewed the documentation as recorded by the Scribe 05/21/17 Meg Moise training with Jennifer Dyer All medical record entries made by the Scribe were at my direction and personally dictated by me. I have reviewed the chart and agree that the record accurately reflects my personal performance of the history, physical exam, medical decision making, and the department course for this patient. I have also personally directed, reviewed, and agree with the discharge instructions and disposition. Disposition/Present on Arrival - Present on Arrival Any Indicators Present on Arrival: No History of DVT/PE: No History of Uncontrolled Diabetes: No Urinary Catheter: No History of Decub. Ulcer: No History Surgical Site Infection Following: None - Disposition Have Diagnosis and Disposition been Completed?: Yes Diagnosis: Pulmonary embolism, Chest pain, Dyspnea Disposition: AGAINST MEDICAL ADVICE Disposition Time: 05:26 Patient Problems: Current Active Problems Problem Status Onset Pulmonary embolism Acute Smoker Chronic COPD (chronic obstructive pulmonary disease) Suspected Pulmonary embolism Resolved Condition: STABLE Discharge Instructions (ExitCare): Chest Pain (ED)
[2017-05-21 02:16] LABS: MEAN CELL VOLUME 82.4 fL (80.0-105.0); MEAN CORPUSCULAR HGB CONC 35.2 g/dl (31.0-37.0); MEAN PLATELET VOLUME 9.2 fl (7.0-11.0); RBC 4.48 10^6/uL (3.5-6.1); RED CELL DISTRIBUTION WIDTH 13.7 % (11.5-14.5); WHITE BLOOD COUNT 7.1 10^3/ul (4.5-11.0)
[2017-05-21 02:35] LABS: ALB/GLOB RATIO 1.6 (1.1-1.8); ALBUMIN 3.9 g/dL (3.0-4.8); ALT/SGPT 28 U/L (7-56); AST/SGOT 19 U/L (15-59); BLOOD UREA NITROGEN 17 mg/dL (7-21); CALCIUM 9.4 mg/dL (8.4-10.5); GFR AFRICAN-AMERICAN > 60; GFR NON-AFRICAN AMERICAN > 60
[2017-05-21 02:50] LABS: TROPONIN I < 0.01 ng/mL
[2017-05-21 02:58] LABS: INR 1.04 (0.93-1.08); PARTIAL THROMBOPLASTIN TIME 28.8 Seconds (23.7-30.8); PROTHROMBIN TIME 11.2 Seconds (9.9-11.8)
--- NOTE | 2017-05-21 03:46 | US ---
EXAM: US Scrotum CLINICAL HISTORY: 52 years old, male; Pain; Scrotum pain; Additional info: Right testicular pain TECHNIQUE: Real-time ultrasound of the scrotum with color Doppler and image documentation. COMPARISON: No relevant prior studies available. FINDINGS: Right testicle: Unremarkable in echogenicity and size measuring 4.1 x 1.6 x 3.3 cm. No mass. No torsion. A small right-sided hydrocele is present. Left testicle: Unremarkable in echogenicity and size measuring 4.3 x 1.4 x 2.9 cm. No mass. No torsion. Epididymides: Unremarkable in echogenicity and size. Scrotum: Unremarkable. IMPRESSION: Small right-sided hydrocele. Otherwise, unremarkable sonographic evaluation of the scrotum, as detailed above.
[2017-05-21] MEDS ORDERED: Iodixanol 320 MG/ML 100 ML BOTTLE IV ONE (04:02)
--- NOTE | 2017-05-21 04:55 | CT ---
EXAM: CT Angiography Chest With Intravenous Contrast CLINICAL HISTORY: 52 years old, male; Signs and symptoms; Shortness of breath; Additional info: Sob/hx. Recent pe TECHNIQUE: Axial computed tomographic angiography images of the chest with intravenous contrast using pulmonary embolism protocol. This CT exam was performed using one or more of the following dose reduction techniques: automated exposure control, adjustment of the mA and/or kV according to patient size, and/or use of iterative reconstruction technique. MIP reconstructed images were created and reviewed. Coronal and sagittal reformatted images were created and reviewed. CONTRAST: 96 mL of [id number] administered intravenously. COMPARISON: CT - CHEST,ABD,PEL W/IV PO CONTRAST 05/17/2017 5:50:46 PM FINDINGS: Pulmonary arteries: A filling defect is identified within a peripheral branch of the right descending pulmonary artery (series 2, images 150 through 160). This finding is new from prior study. No filling defects are detected within the main, proximal or remaining segmental pulmonary arteries. Aorta: No thoracic aortic aneurysm. Lungs: No mass. No consolidation. Pleural spaces: No significant effusion. No pneumothorax. Heart: No cardiomegaly. No significant pericardial effusion. Flattening of the interventricular septum is identified, without discrete bowling of the interventricular septum. No reflux of intravenous contrast is detected into the hepatic veins. Bones: No acute fracture. Lymph nodes: No pathologically enlarged lymph nodes. IMPRESSION: Small filling defect within a peripheral branch of the right descending pulmonary artery, and new from prior study. No evidence of right heart strain.
[2017-05-21 05:08] VITALS: BP 120/66; RESP 16; O2SAT 99
[2017-05-21 05:46] LABS: PH,URINE 6.5 (4.7-8.0); URINE BILIRUBIN NEGATIVE (NEGATIVE); URINE BLOOD NEGATIVE (NEGATIVE); URINE GLUCOSE (UA) NEGATIVE (NEGATIVE); URINE LEUKOCYTE ESTERASE NEGATIVE Leu/uL (NEGATIVE); URINE NITRATE NEGATIVE (NEGATIVE); URINE PROTEIN TRACE mg/dL (<30 mg/dL)
[2017-05-21 05:56] LABS: URINE APPEARANCE CLEAR (CLEAR); URINE COLOR YELLOW (YELLOW)
[2017-05-21 06:15] LABS: URINE CALCIUM OXALATE CRYSTALS SMALL /hpf; URINE EPITHELIAL CELLS 0 - 2 /hpf (0-5); URINE RBC 0 - 2 /hpf (0-2); URINE WBC 0 - 2 /hpf (0-6)
--- NOTE | 2017-05-21 07:32 | RAD ---
HISTORY: pain COMPARISON: 01/05/2017 FINDINGS: LUNGS: No active pulmonary disease. PLEURA: No significant pleural effusion identified, no pneumothorax apparent. CARDIOVASCULAR: Normal. OSSEOUS STRUCTURES: No significant abnormalities. VISUALIZED UPPER ABDOMEN: Normal. OTHER FINDINGS: None. IMPRESSION: No active disease.
--- NOTE | 2017-05-21 10:49 | CARD ---
APPROVED REPORT EKG Measurement Heart [id number] <Conclusion> Sinus rhythm with sinus arrhythmia with 1st degree AV block Otherwise normal ECG
== END 2017-05-21 05:20 | disposition left against medical advice (07) ==
LOC: ED 00:44
DX: I26.99 Other pulmonary embolism without acute cor pulmonale (principal); R07.9 Chest pain, unspecified; R06.00 Dyspnea, unspecified; Z72.0 Tobacco use
CPT/HCPCS: 71010; 71275; 80053; 81001; 82550; 83615; 84484; 85027; 85610; 85730; 93005; 93975; 96374; 96376; 99285; J1170; Q9967

== ENCOUNTER 2017-05-21 10:21 | Inpatient (IN) | payer OTHER ==
--- NOTE | 2017-05-21 11:00 | ED PDOC ---
Arrival/HPI - General Chief Complaint: Shortness Of Breath Time Seen by Provider: 05/21/17 10:30 Historian: Patient - History of Present Illness Narrative History of Present Illness (Text): 05/21/17 10:53 52yo male with history of PE present with complaint of worsening dyspnea with exertion, cehst pain. He was seen here on 05/17/17 for same diagnosis and discharged home 05/19/17. He came back again yesterday for worsening SOB and chest CT show new PE. Patient signed out AMA. states he left to take care of some issues. He came back to be admitted. Past Medical History - Provider Review Nursing Documentation Reviewed: Yes - Infectious Disease Hx of Infectious Diseases: None - Tetanus Immunization Tetanus Immunization: Unknown - Past Medical History Past Medical History: No Previous - Cardiac Hx Cardiac Disorders: No Other/Comment: low bp - Pulmonary Hx Respiratory Disorders: No Hx Bronchitis: Yes Hx Pulmonary Embolism: Yes (right) - Neurological Hx Neurological Disorder: No - HEENT Hx HEENT Disorder: No - Renal Hx Renal Disorder: No - Endocrine/Metabolic Hx Endocrine Disorders: No - Hematological/Oncological Hx Blood Disorders: No - Integumentary Hx Dermatological Disorder: No - Musculoskeletal/Rheumatological Hx Musculoskeletal Disorders: No Hx Arthritis: Yes Hx Back Pain: Yes Hx Herniated Disk: Yes - Gastrointestinal Hx Gastrointestinal Disorders: No - Genitourinary/Gynecological Hx Genitourinary Disorders: No - Psychiatric Hx Psychophysiologic Disorder: Yes Hx Anxiety: Yes Hx Depression: No Hx Emotional Abuse: No Hx Physical Abuse: No Hx Substance Use: No - Past Surgical History Past Surgical History: No Previous - Surgical History Hx Cardiac Catheterization: Yes Hx Orthopedic Surgery: Yes (right shouldert) Other/Comment: hemorrhoid surgery, 5 avusion fx, right rotator cuff surgery, double hernia sx as child - Anesthesia Hx Anesthesia: Yes Hx Anesthesia Reactions: No - Suicidal Assessment Feels Threatened In Home Enviroment: No Family/Social History - Physician Review Nursing Documentation Reviewed: Yes Family/Social History: Unknown Family HX Smoking Status: Former Smoker Hx Alcohol Use: Yes Frequency of alcohol use: Socially Amount per day: 2 Hx Substance Use: No Hx Substance Use Treatment: No Allergies/Home Meds Allergies/Adverse Reactions: Allergies amoxicillin trihydrate [From Augmentin] Allergy (Verified 05/21/17 10:25) ANAPHYLAXIS potassium clavulanate [From Augmentin] Allergy (Verified 05/21/17 10:25) ANAPHYLAXIS prednimustine Allergy (Verified 05/21/17 10:25) RASH prednisolone Allergy (Verified 05/21/17 10:25) RASH prednisolone acetate, micronized Allergy (Verified 05/21/17 10:25) RASH prednisone Allergy (Verified 05/21/17 10:25) RASH prednylidene Allergy (Verified 05/21/17 10:25) RASH prednison Allergy (Uncoded 05/21/17 10:25) RASH Home Medications: Home Meds Medication Instructions Recorded Confirmed ALPRAZolam HALF TABLET [Xanax] 1 mg PO DAILY 01/05/17 05/21/17 Oxycodone HCl [Roxicodone] 15 mg PO Q6 PRN 01/05/17 05/21/17 Review of Systems - Physician Review All systems were reviewed & negative as marked: Yes - Review of Systems Constitutional: Normal Eyes: Normal ENT: Normal Respiratory: SOB Cardiovascular: Chest Pain Gastrointestinal: Normal Genitourinary Male: Normal Musculoskeletal: Normal Skin: Normal Neurological: Normal Endocrine: Normal Hemo/Lymphatic: Normal Psychiatric: Normal Physical Exam Vital Signs Reviewed: Yes Vital Signs Temp Pulse Resp BP Pulse Ox 05/21/17 12:25 71 18 96/61 L 98 05/21/17 10:49 67 17 103/67 96 05/21/17 10:31 24 96 05/21/17 10:28 98.2 F 69 24 113/76 98 Temperature: Afebrile Blood Pressure: Normal Pulse: Regular Respiratory Rate: Normal Appearance: Positive for: Well-Appearing, Non-Toxic, Comfortable Pain Distress: None Mental Status: Positive for: Alert and Oriented X 3 - Systems Exam Head: Present: Atraumatic, Normocephalic Pupils: Present: PERRL Extroacular Muscles: Present: EOMI Conjunctiva: Present: Normal Mouth: Present: Moist Mucous Membranes Neck: Present: Normal Range of Motion Respiratory/Chest: Present: Clear to Auscultation, Good Air Exchange. No: Respiratory Distress, Accessory Muscle Use, Wheezes, Decreased Breath Sounds, Rales, Retracting, Rhonchi, Tachypneic Cardiovascular: Present: Regular Rate and Rhythm, Normal S1, S2. No: Murmurs Abdomen: Present: Normal Bowel Sounds. No: Tenderness, Distention, Peritoneal Signs Back: Present: Normal Inspection Upper Extremity: Present: Normal Inspection. No: Cyanosis, Edema Lower Extremity: Present: Normal Inspection. No: Edema Neurological: Present: GCS=15, CN II-XII Intact, Speech Normal Skin: Present: Warm, Dry, Normal Color. No: Rashes Psychiatric: Present: Alert, Oriented x 3, Normal Insight, Normal Concentration Medical Decision Making ED Course and Treatment: 05/21/17 11:01 Pt with history of PE in ED for worsening CHAVEZ, pleuritic chest pain. His record from this morning was reviewed and labs reviewed. Chest CT showed new PE. Case was PATSY Wells. She notes that she will DC with Dr. Cervantes and make a decision. Case was PATSY Cervantes. She accepted pt for admission Disposition/Present on Arrival - Present on Arrival Any Indicators Present on Arrival: No History of DVT/PE: No History of Uncontrolled Diabetes: No Urinary Catheter: No History of Decub. Ulcer: No History Surgical Site Infection Following: None - Disposition Have Diagnosis and Disposition been Completed?: Yes Diagnosis: Pulmonary embolism Disposition: HOSPITALIZED Disposition Time: 12:05 Patient Problems: Current Active Problems Problem Status Onset Pulmonary embolism Acute Condition: FAIR
[2017-05-21] MEDS ORDERED: oxyCODONE 15 mg Immediate Release Tab PO PRN (12:56)
--- NOTE | 2017-05-21 12:56 | CP.PCM.PN ---
Subjective - Date & Time of Evaluation Date of Evaluation: 05/19/17 Time of Evaluation: 10:40 - Subjective Subjective: Patient is breathing without issues. Objective - Vital Signs/Intake and Output Vital Signs (last 24 hours): 05/19/17: BP is 115/65 Heart rate is in the 50s Temp Pulse Resp BP Pulse Ox 98.2 F 71 18 96/61 L 98 05/21/17 10:28 05/21/17 12:25 05/21/17 12:25 05/21/17 12:25 05/21/17 12:25 - Labs Labs: 05/19/17: Hemoglobin is 12.5 Chemistries: Glucose is 116 - Neck Exam Additional comments: Negative JVD - Respiratory Exam Respiratory Exam: absent: Rales - Cardiovascular Exam Cardiovascular Exam: +S1, +S2 - Extremities Exam Extremities Exam: absent: Pedal Edema Assessment and Plan (1) Pulmonary embolism Status: Resolved (2) Dyspnea Status: Resolved (3) COPD (chronic obstructive pulmonary disease) Status: Suspected (4) Smoker Status: Chronic - Assessment and Plan (Free Text) Plan: Given these findings, the patient will be anticoagulated with plans to be discharged today. I have discussed with the patient about the need to stop smoking. The patient is aware of the consequences of his smoking issues. He is agreeable and understands the dangers of his continuos smoking.
[2017-05-21] MEDS: oxyCODONE 15 mg Immediate Release Tab PO PRN ×2 (13:16→20:09)
[2017-05-21 13:23] LABS: INR 1.02 (0.93-1.08)
--- NOTE | 2017-05-21 14:23 | CARD ---
APPROVED REPORT EKG Measurement Heart [id number] <Conclusion> Sinus rhythm with occasional premature ventricular complexes Otherwise normal ECG
[2017-05-21] MEDS: Heparin 25,000units in D5W 25,000 UNITS/250 ML BAG IV PRN (14:35)
--- NOTE | 2017-05-21 16:56 | CP.PCM.HP ---
<Diogenes Sanderson - Last Filed: 05/21/17 16:53> History of Present Illness - History of Present Illness History of Present Illness: 52yo male with history of PE present with complaint of worsening dyspnea with exertion and chest pain. He was seen here on 05/17/17 for same diagnosis and discharged home 05/19/17 with Eliquis. He came back again yesterday for worsening SOB and chest CT show new PE. Patient signed out AMA. States he left to take care of some issues. He came back to be admitted. Patient was very adamant about leaving during his previous admission. Was offered meds to bed, but he wished for his eliquis to be sent to his pharmacy ([facility] in [place]) instead. He stated pharmacy did not have his medication so he missed one day of Eliquis. He also complains of slight chest pain. Denies abdominal pain, fevers, or chills. PMH: Tobacco abuse, Bronchitis, PE, and R Shoulder Pain PSHx: Rotator cuff surgery All: Prednisone, Augmentin SocHx: .5ppd for 30 years; cocaine, heroin in the past; drinks occasionally Meds: Percocet 15 mg; Xanax. Eliquis FamHx: Non-contributory Present on Admission - Present on Admission Any Indicators Present on Admission: Yes History of DVT/PE: Yes Review of Systems - Constitutional Constitutional: As Per HPI - Cardiovascular Cardiovascular: As Per HPI - Respiratory Respiratory: As Per HPI - Gastrointestinal Gastrointestinal: As Per HPI Past Patient History - Infectious Disease Hx of Infectious Diseases: None - Tetanus Immunizations Tetanus Immunization: Unknown - Past Medical History & Family History Past Medical History?: Yes - Past Social History Smoking Status: Former Smoker - CARDIAC Hx Cardiac Disorders: No Other/Comment: low bp - PULMONARY Hx Respiratory Disorders: No Hx Bronchitis: Yes Hx Pulmonary Embolism: Yes (right) - NEUROLOGICAL Hx Neurological Disorder: No - HEENT Hx HEENT Problems: No - RENAL Hx Chronic Kidney Disease: No - ENDOCRINE/METABOLIC Hx Endocrine Disorders: No - HEMATOLOGICAL/ONCOLOGICAL Hx Blood Disorders: No - INTEGUMENTARY Hx Dermatological Problems: No - MUSCULOSKELETAL/RHEUMATOLOGICAL Hx Musculoskeletal Disorders: No Hx Arthritis: Yes Hx Back Pain: Yes Hx Herniated Disk: Yes - GASTROINTESTINAL Hx Gastrointestinal Disorders: No - GENITOURINARY/GYNECOLOGICAL Hx Genitourinary Disorders: No - PSYCHIATRIC Hx Psychophysiologic Disorder: Yes Hx Anxiety: Yes Hx Depression: No Hx Emotional Abuse: No Hx Physical Abuse: No Hx Substance Use: No - SURGICAL HISTORY Hx Cardiac Catheterization: Yes Hx Orthopedic Surgery: Yes (right shouldert) Other/Comment: hemorrhoid surgery, 5 avusion fx, right rotator cuff surgery, double hernia sx as child - ANESTHESIA Hx Anesthesia: Yes Hx Anesthesia Reactions: No Meds Allergies/Adverse Reactions: Allergies Allergy/AdvReac Type Severity Reaction Status Date / Time amoxicillin trihydrate Allergy ANAPHYLAXIS Verified 05/21/17 17:33 [From Augmentin] potassium clavulanate Allergy ANAPHYLAXIS Verified 05/21/17 17:33 [From Augmentin] prednimustine Allergy RASH Verified 05/21/17 17:33 prednisolone Allergy RASH Verified 05/21/17 17:33 prednisolone acetate, Allergy RASH Verified 05/21/17 17:33 micronized prednisone Allergy RASH Verified 05/21/17 17:33 prednylidene Allergy RASH Verified 05/21/17 17:33 prednison Allergy RASH Uncoded 05/21/17 17:33 Physical Exam - Constitutional Appears: Well, Non-toxic, No Acute Distress - Head Exam Head Exam: ATRAUMATIC, NORMOCEPHALIC - Eye Exam Eye Exam: EOMI - Respiratory Exam Respiratory Exam: Clear to Auscultation Bilateral - Cardiovascular Exam Cardiovascular Exam: REGULAR RHYTHM, +S1, +S2 - GI/Abdominal Exam GI & Abdominal Exam: Soft. absent: Tenderness - Psychiatric Exam Psychiatric exam: Normal Affect, Normal Mood Results - Vital Signs Recent Vital Signs: Last Vital Signs Temp 98.2 F 05/21/17 10:28 Pulse 66 05/21/17 13:11 Resp 18 05/21/17 13:11 BP 99/65 L 05/21/17 13:11 Pulse Ox 97 05/21/17 13:11 - Labs Labs: Laboratory Results - last 24 hr 05/21/17 13:00 PT 11.0 INR 1.02 APTT 27.0 Assessment & Plan - Assessment and Plan (Free Text) Assessment: Mr. Álvarez is a 52 y/o male with a pertinent PMHx of tobacco abuse, PE and right sided shoulder pain for which he takes Percocet 15. He was readmitted today for SOB 2/2 PE. Plan: 1.SOB 2/2 pulmonary embolism -Hypercouagble workup negative from previous admission -Heparin ip -Stat EKG -PTT/CBC -Vital Signs Q8 2.Pain Control -Cont. his home medications (Percocet 15 PO Q6 PRN) 3.Gi Proph -Protonix - Date & Time Date: 05/21/17 Time: 16:59 <Corinne Cervantes Zee - Last Filed: 05/22/17 12:42> Results - Vital Signs Recent Vital Signs: Last Vital Signs Temp 98.4 F 05/22/17 12:00 Pulse 58 L 05/22/17 12:00 Resp 16 05/22/17 12:00 BP 112/71 05/22/17 12:00 Pulse Ox 98 05/22/17 06:00 - Labs Result Diagrams: 05/22/17 06:00 05/22/17 06:00 Labs: Laboratory Results - last 24 hr 05/21/17 05/21/17 05/22/17 13:00 20:39 02:40 WBC RBC Hgb Hct MCV MCH MCHC RDW Plt Count MPV Gran % Lymph % (Auto) Banner % (Auto) Eos % (Auto) Baso % (Auto) Gran # Lymph # Banner # Eos # Baso # PT 11.0 INR 1.02 APTT 27.0 53.7 H 77.6 H* Sodium Potassium Chloride Carbon Dioxide Anion Gap BUN Creatinine Est GFR ( Amer) Est GFR (Non-Af Amer) Random Glucose Calcium Total Bilirubin AST ALT Alkaline Phosphatase Total Protein Albumin Globulin Albumin/Globulin Ratio 05/22/17 05/22/17 05/22/17 06:00 06:00 06:00 WBC 4.8 D RBC 4.00 Hgb 11.3 L Hct 33.5 L MCV 83.8 MCH 28.3 MCHC 33.7 RDW 13.6 Plt Count 155 MPV 9.5 Gran % 43.7 L Lymph % (Auto) 42.9 H Banner % (Auto) 10.7 H Eos % (Auto) 2.5 Baso % (Auto) 0.2 Gran # 2.08 Lymph # 2.0 Banner # 0.5 Eos # 0.1 Baso # 0.01 PT 11.1 INR 1.03 APTT Sodium 142 Potassium 3.9 Chloride 108 H Carbon Dioxide 27 Anion Gap 11 BUN 19 Creatinine 0.8 Est GFR ( Amer) > 60 Est GFR (Non-Af Amer) > 60 Random Glucose 106 Calcium 8.8 Total Bilirubin 0.4 AST 17 ALT 27 Alkaline Phosphatase 37 L Total Protein 5.7 L Albumin 3.4 Globulin 2.3 Albumin/Globulin Ratio 1.5 05/22/17 06:00 WBC RBC Hgb Hct MCV MCH MCHC RDW Plt Count MPV Gran % Lymph % (Auto) Banner % (Auto) Eos % (Auto) Baso % (Auto) Gran # Lymph # Banner # Eos # Baso # PT INR APTT 76.9 H* Sodium Potassium Chloride Carbon Dioxide Anion Gap BUN Creatinine Est GFR ( Amer) Est GFR (Non-Af Amer) Random Glucose Calcium Total Bilirubin AST ALT Alkaline Phosphatase Total Protein Albumin Globulin Albumin/Globulin Ratio Attending/Attestation - Attestation I have personally seen and examined this patient.: Yes I have fully participated in the care of the patient.: Yes I have reviewed all pertinent clinical information: Yes Notes (Text): I have seen and examined the patient at bedside. Agree with the note dictated above with the following additions/ exceptions: Briefly this is 52 year old male with history of DVT of LE x2, sinus bradycardia , history of TB s/p INH tx, unintentional weight loss, shoulder pain, tobacco use, recently diagnosed with PE who was sent by PMD for evaluation of shortness of breath. CT scan of chest was repeated which revealed new PE. Patient was found to be in no respiratory distress. Saturations were 97% on RA and RR was 17. Discussed with vamp seamer who recommended to resume eliquis upon dc. Patient will be started on heparin drip IV. There was also concern for colitis on his previous CT scan. Patient denies any GI symptoms. GI consult was obtained on his last admission and they recommend outpatient colonoscopy. Patient will follow up with Dr Brady and Dr Kramer. Dr Corinne Cervantes
[2017-05-21] MEDS ORDERED: Pneumococcal 23-Valent Vaccine IM ONE (18:10)
[2017-05-21 18:11] VITALS: BMI 26.6
[2017-05-22 01:50] VITALS: O2SAT 98
[2017-05-22] MEDS: oxyCODONE 15 mg Immediate Release Tab PO PRN ×2 (02:09→09:00)
[2017-05-22] MEDS: Heparin 25,000units in D5W 25,000 UNITS/250 ML BAG IV PRN (05:13)
[2017-05-22 07:09] LABS: BASO # 0.01 K/mm3 (0.0-2.0); BASO % 0.2 % (0.0-3.0); EOS # 0.1 (0.0-0.7); EOS % 2.5 % (1.5-5.0); GRAN # 2.08 (1.4-6.5); GRAN % 43.7 % (50.0-68.0); HEMOGLOBIN 11.3 gm/dL (14.0-18.0); LYMPH % 42.9 % (22.0-35.0); MEAN CELL VOLUME 83.8 fL (80.0-105.0); MEAN CORPUSCULAR HEMOGLOBIN 28.3 pg (25.0-35.0); MEAN CORPUSCULAR HGB CONC 33.7 g/dl (31.0-37.0); MEAN PLATELET VOLUME 9.5 fl (7.0-11.0); MONO # 0.5 (0.1-0.6); MONO % 10.7 % (1.0-6.0); PLATELET COUNT 155 10^3/uL (120.0-450.0); RED CELL DISTRIBUTION WIDTH 13.6 % (11.5-14.5); WHITE BLOOD COUNT 4.8 10^3/ul (4.5-11.0)
--- NOTE | 2017-05-22 07:11 | CP.PCM.DIS ---
<Diogenes Sanderson - Last Filed: 05/22/17 10:10> Provider - Provider Date of Admission: 05/21/17 12:03 Attending physician: Corinne Cervantes MD Primary care physician: NO PRIMARY CARE PROVIDER Consults: None Time Spent in preparation of Discharge (in minutes): 35 Hospital Course - Lab Results Lab Results: Most Recent Lab Values PT 11.0 Seconds (9.9-11.8) 05/21/17 13:00 INR 1.02 (0.93-1.08) 05/21/17 13:00 APTT 77.6 Seconds (23.7-30.8) H* 05/22/17 02:40 - Hospital Course Hospital Course: 52yo male with history of PE presented with complaint of worsening dyspnea with exertion and chest pain. He was seen here on 05/17/17 for same diagnosis and discharged home 05/19/17 with Eliquis. He came back again on 05/20 for worsening SOB and chest CT show new PE. Patient signed out AMA. States he left to take care of some issues. He came back to be admitted. He stated that his PMD insisted that he come in. Patient was very adamant about leaving during his previous admission. Was offered meds to bed, but he wished for his eliquis to be sent to his pharmacy ([facility] in [place]) instead. He stated pharmacy did not have his medication so he missed one day of Eliquis. Patient was put on a heparin drip and monitored overnight. Patient is hemodynamically stable He will continue his Eliquis. Patient is agreeable with the plan Patient seen, examined, and discussed with attending Diogenes Sanderson PGY1 - Date & Time of H&P Date of H&P: 05/22/17 Time of H&P: 10:03 Discharge Exam - Head Exam Head Exam: ATRAUMATIC, NORMOCEPHALIC - ENT Exam ENT Exam: Mucous Membranes Moist - Neck Exam Additional comments: No Lymphadenoapthy - Respiratory Exam Respiratory Exam: Clear to PA & Lateral, UNREMARKABLE. absent: Rales, Rhonchi - Cardiovascular Exam Cardiovascular Exam: JVD, RRR, +S1, +S2 - GI/Abdominal Exam GI & Abdominal Exam: Normal Bowel Sounds, Soft. absent: Tenderness - Extremities Exam Additional comments: NO Pedal Edema - Neurological Exam Neurological exam: Alert, Oriented x3 - Psychiatric Exam Psychiatric exam: Normal Affect, Normal Mood - Skin Skin Exam: Dry, Intact, Normal Color, Warm Discharge Plan - Follow Up Plan Condition: FAIR Disposition: HOME/ ROUTINE Instructions: Pulmonary Embolism (DC) Additional Instructions: 1. Continue to take Eliquis twice per day. 2. Follow up with Dr. Brady in 1 week. Referrals: Garo Brady MD [Staff Provider] - PCP,NO [Primary Care Provider] - <Corinne Cervantes - Last Filed: 05/22/17 13:33> Provider - Provider Date of Admission: 05/21/17 12:03 Attending physician: Corinne Cervantes MD Primary care physician: NO PRIMARY CARE PROVIDER Hospital Course - Lab Results Lab Results: Most Recent Lab Values WBC 4.8 10^3/ul (4.5-11.0) D 05/22/17 06:00 RBC 4.00 10^6/uL (3.5-6.1) 05/22/17 06:00 Hgb 11.3 gm/dL (14.0-18.0) L 05/22/17 06:00 Hct 33.5 % (42.0-52.0) L 05/22/17 06:00 MCV 83.8 fL (80.0-105.0) 05/22/17 06:00 MCH 28.3 pg (25.0-35.0) 05/22/17 06:00 MCHC 33.7 g/dl (31.0-37.0) 05/22/17 06:00 RDW 13.6 % (11.5-14.5) 05/22/17 06:00 Plt Count 155 10^3/uL (120.0-450.0) 05/22/17 06:00 MPV 9.5 fl (7.0-11.0) 05/22/17 06:00 Gran % 43.7 % (50.0-68.0) L 05/22/17 06:00 Lymph % (Auto) 42.9 % (22.0-35.0) H 05/22/17 06:00 Warrick % (Auto) 10.7 % (1.0-6.0) H 05/22/17 06:00 Eos % (Auto) 2.5 % (1.5-5.0) 05/22/17 06:00 Baso % (Auto) 0.2 % (0.0-3.0) 05/22/17 06:00 Gran # 2.08 (1.4-6.5) 05/22/17 06:00 Lymph # 2.0 (1.2-3.4) 05/22/17 06:00 Warrick # 0.5 (0.1-0.6) 05/22/17 06:00 Eos # 0.1 (0.0-0.7) 05/22/17 06:00 Baso # 0.01 K/mm3 (0.0-2.0) 05/22/17 06:00 PT 11.1 Seconds (9.9-11.8) 05/22/17 06:00 INR 1.03 (0.93-1.08) 05/22/17 06:00 APTT 76.9 Seconds (23.7-30.8) H* 05/22/17 06:00 Sodium 142 mmol/L (132-148) 05/22/17 06:00 Potassium 3.9 mmol/L (3.6-5.0) 05/22/17 06:00 Chloride 108 mmol/L (98-107) H 05/22/17 06:00 Carbon Dioxide 27 mmol/L (21-33) 05/22/17 06:00 Anion Gap 11 (10-20) 05/22/17 06:00 BUN 19 mg/dL (7-21) 05/22/17 06:00 Creatinine 0.8 mg/dL (0.5-1.4) 05/22/17 06:00 Est GFR ( Amer) > 60 05/22/17 06:00 Est GFR (Non-Af Amer) > 60 05/22/17 06:00 Random Glucose 106 mg/dL (70-110) 05/22/17 06:00 Calcium 8.8 mg/dL (8.4-10.5) 05/22/17 06:00 Total Bilirubin 0.4 mg/dL (0.2-1.3) 05/22/17 06:00 AST 17 U/L (15-59) 05/22/17 06:00 ALT 27 U/L (7-56) 05/22/17 06:00 Alkaline Phosphatase 37 U/L (38-133) L 05/22/17 06:00 Total Protein 5.7 g/dL (5.8-8.3) L 05/22/17 06:00 Albumin 3.4 g/dL (3.0-4.8) 05/22/17 06:00 Globulin 2.3 gm/dL 05/22/17 06:00 Albumin/Globulin Ratio 1.5 (1.1-1.8) 05/22/17 06:00 Attending/Attestation - Attestation I have personally seen and examined this patient.: Yes I have fully participated in the care of the patient.: Yes I have reviewed all pertinent clinical information, including history, physical exam and plan: Yes Notes (Text): I have seen and examined the patient at bedside. Agree with the note dictated above with the following additions/ exceptions: Briefly this is 52 year old male with history of DVT of LE x2, sinus bradycardia , history of TB s/p INH tx, unintentional weight loss, shoulder pain, tobacco use, recently diagnosed with PE who was sent by PMD for evaluation of shortness of breath. CT scan of chest was repeated which revealed new PE. Patient was found to be in no respiratory distress. Saturations were 97% on RA and RR was 17. Discussed with guest attendant who recommended to resume eliquis upon dc. Patient was given heparin drip IV during hospitalization. He is requesting to be sent home today. Denies any complaints. Called Dr Brady's office and case was discussed with NENITA Dooley who agreed to discharge the patient home today. Advised the patient to follow up in Dr Brady's office on 05/25/2017. Reiterated the need to be compliant with anticoagulants. He was able to walk in a steady state without any shortness of breath. There was also concern for colitis on his previous CT scan. Patient denies any GI symptoms. GI consult was obtained on his last admission and they recommend outpatient colonoscopy. Patient will follow up with Dr Brady and Dr Kramer. Dr Corinne Cervantes
[2017-05-22 07:12] LABS: ALB/GLOB RATIO 1.5 (1.1-1.8); ALBUMIN 3.4 g/dL (3.0-4.8); ALT/SGPT 27 U/L (7-56); AST/SGOT 17 U/L (15-59); BLOOD UREA NITROGEN 19 mg/dL (7-21); CALCIUM 8.8 mg/dL (8.4-10.5); GFR AFRICAN-AMERICAN > 60; GFR NON-AFRICAN AMERICAN > 60
[2017-05-22 07:13] LABS: INR 1.03 (0.93-1.08); PROTHROMBIN TIME 11.1 Seconds (9.9-11.8)
[2017-05-22] MEDS ORDERED: Pantoprazole 40 mg EC Tab PO SCH (07:30)
[2017-05-22 12:05] VITALS: BP 112/71; PULSE 58; RESP 16; TEMP 98.4
--- NOTE | 2017-05-26 18:24 | CP.PCM.CON ---
History of Present Illness - History of Present Illness History of Present Illness: 62 year old male, who presents with sudden onset of dyspnea. He was found to have an acute pulmonary embolism on CT scan. Patient's PMHx is notable for a mild dilated cardiomyopathy. He suffered from chest pain; his stress test was recently negative. His EF is 50%. Patient currently taking Oxycodone at home Review of Systems - Review of Systems Review of Systems: was reviewed in detail. No cardiac symptomatology noted. Past Patient History - Infectious Disease Hx of Infectious Diseases: None - Tetanus Immunizations Tetanus Immunization: Unknown - Past Medical History & Family History Past Medical History?: Yes - Past Social History Smoking Status: Former Smoker - CARDIAC Hx Cardiac Disorders: Yes (PTCA 3 YRS AGO) Other/Comment: low bp - PULMONARY Hx Respiratory Disorders: Yes (SMOKED CIGARETTES QUIT 05-17-17) Hx Bronchitis: Yes - NEUROLOGICAL Hx Neurological Disorder: No - HEENT Hx HEENT Problems: Yes (BLIND RIGHT EYE-) - RENAL Hx Chronic Kidney Disease: No - ENDOCRINE/METABOLIC Hx Endocrine Disorders: No - HEMATOLOGICAL/ONCOLOGICAL Hx Blood Disorders: No - INTEGUMENTARY Hx Dermatological Problems: No - MUSCULOSKELETAL/RHEUMATOLOGICAL Hx Musculoskeletal Disorders: Yes (ROTATOR CUFF SX,AVULSION FX,) Hx Arthritis: Yes Hx Back Pain: Yes Hx Falls: No Hx Herniated Disk: Yes - GASTROINTESTINAL Hx Gastrointestinal Disorders: Yes (DOUBLE HERNIA,HEMORHOIDECTOMY) Other/Comment: GI BLEED - GENITOURINARY/GYNECOLOGICAL Hx Genitourinary Disorders: No - PSYCHIATRIC Hx Psychophysiologic Disorder: Yes Hx Anxiety: Yes Hx Depression: No Hx Emotional Abuse: No Hx Physical Abuse: No 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) - SURGICAL HISTORY Hx Cardiac Catheterization: Yes Hx Orthopedic Surgery: Yes (right shouldert) Other/Comment: hemorrhoid surgery, 5 avusion fx, right rotator cuff surgery, double hernia sx as child - ANESTHESIA Hx Anesthesia: Yes Hx Anesthesia Reactions: No Meds Allergies/Adverse Reactions: Allergies Allergy/AdvReac Type Severity Reaction Status Date / Time amoxicillin trihydrate Allergy ANAPHYLAXIS Verified 05/21/17 17:33 [From Augmentin] potassium clavulanate Allergy ANAPHYLAXIS Verified 05/21/17 17:33 [From Augmentin] prednimustine Allergy RASH Verified 05/21/17 17:33 prednisolone Allergy RASH Verified 07/13/17 17:33 prednisolone acetate, Allergy RASH Verified 05/21/17 17:33 micronized prednisone Allergy RASH Verified 05/21/17 17:33 prednylidene Allergy RASH Verified 05/21/17 17:33 prednison Allergy RASH Uncoded 05/21/17 17:33 Physical Exam - Constitutional Additional comments: BP 107/6. HR is in the 70s - Neck Exam Additional comments: Negative JVD - Cardiovascular Exam Cardiovascular Exam: +S1, +S2 - Extremities Exam Additional comments: no edema Results - Vital Signs Recent Vital Signs: Last Vital Signs Temp 98.4 F 05/22/17 12:00 Pulse 58 L 05/22/17 12:00 Resp 16 05/22/17 12:00 BP 112/71 05/22/17 12:00 Pulse Ox 98 05/22/17 06:00 - Labs Result Diagrams: 05/22/17 06:00 05/22/17 06:00 - EKG Data EKG comments: unremarkable Assessment & Plan (1) COPD (chronic obstructive pulmonary disease) Status: Suspected (2) Smoker Status: Chronic - Assessment and Plan (Free Text) Assessment: 1. Acute pulmonary embolism 2. Borderline dilated cardiomyopathy 3. Chest Pain, not of cardiac origin 4. Dyspnea Plan: Given these findings, patient will be treated with IV Heparin. No further cardiac workup is necessary at this time.
== END 2017-05-22 14:23 | disposition home or self-care (01) | DRG 78 ==
LOC: ED 10:21 → ERH 12:03 → 2RSO 13:31
PROVIDERS: ADMIT Hospitalist; ATTEND Hospitalist
DX: I26.99 Other pulmonary embolism without acute cor pulmonale (principal); I42.0 Dilated cardiomyopathy; J44.9 Chronic obstructive pulmonary disease, unspecified; Z86.11 Personal history of tuberculosis; Z86.711 Personal history of pulmonary embolism; Z86.718 Personal history of other venous thrombosis and embolism; H54.41 Blindness, right eye, normal vision left eye; M19.90 Unspecified osteoarthritis, unspecified site; M54.9 Dorsalgia, unspecified; F41.9 Anxiety disorder, unspecified; Z88.0 Allergy status to penicillin; Z88.8 Allergy status to other drugs, medicaments and biological substances; Z87.892 Personal history of anaphylaxis; R40.2412 Glasgow coma scale score 13-15, at arrival to emergency department; Z87.891 Personal history of nicotine dependence; Z87.898 Personal history of other specified conditions

== ENCOUNTER 2017-06-21 18:31 | Emergency (ER) | payer OTHER ==
[2017-06-21 18:32] VITALS: BMI 26.6
[2017-06-21 18:37] VITALS: TEMP 98.6
[2017-06-21] MEDS ORDERED: DiphenhydrAMINE 50 mg/ml Inj IVP STA (19:03)
--- NOTE | 2017-06-21 19:12 | ED PDOC ---
Arrival/HPI - General Chief Complaint: Headache Time Seen by Provider: 06/21/17 18:43 Historian: Patient - History of Present Illness Narrative History of Present Illness (Text): 06/21/17 19:09 A 51 year old male whose past medical history includes, Pulmonary Embolism and is on Eliquis, presents to the Emergency department complaining of a headache and neck pain since earlier today. The patient denies trauma or injury, fevers, chills, chest pain, shortness of breath, abdominal pain, nausea, vomiting, diarrhea, or any other complaint. Time/Duration: Other (Today) Symptom Onset: Sudden Symptom Course: Unchanged Activities at Onset: Rest, Light Context: Home Past Medical History - Provider Review Nursing Documentation Reviewed: Yes - Infectious Disease Hx of Infectious Diseases: None - Tetanus Immunization Tetanus Immunization: Unknown - Past Medical History Past Medical History: No Previous - Cardiac Hx Cardiac Disorders: Yes (PTCA 3 YRS AGO) Other/Comment: low bp - Pulmonary Hx Respiratory Disorders: Yes (SMOKED CIGARETTES QUIT 05-17-17) Hx Bronchitis: Yes Hx Pulmonary Embolism: Yes (right lung) - Neurological Hx Neurological Disorder: No - HEENT Hx HEENT Disorder: Yes (BLIND RIGHT EYE-) - Renal Hx Renal Disorder: No - Endocrine/Metabolic Hx Endocrine Disorders: No - Hematological/Oncological Hx Blood Disorders: No - Integumentary Hx Dermatological Disorder: No - Musculoskeletal/Rheumatological Hx Musculoskeletal Disorders: Yes (ROTATOR CUFF SX,AVULSION FX,) Hx Arthritis: Yes Hx Back Pain: Yes Hx Falls: No Hx Herniated Disk: Yes - Gastrointestinal Hx Gastrointestinal Disorders: Yes (DOUBLE HERNIA,HEMORHOIDECTOMY) Other/Comment: GI BLEED - Genitourinary/Gynecological Hx Genitourinary Disorders: No - Psychiatric Hx Psychophysiologic Disorder: Yes Hx Anxiety: Yes Hx Depression: No Hx Emotional Abuse: No Hx Physical Abuse: No 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) - Past Surgical History Past Surgical History: No Previous - Surgical History Hx Cardiac Catheterization: Yes Hx Orthopedic Surgery: Yes (right shouldert) Other/Comment: hemorrhoid surgery, 5 avusion fx, right rotator cuff surgery, double hernia sx as child - Anesthesia Hx Anesthesia: Yes Hx Anesthesia Reactions: No - Suicidal Assessment Feels Threatened In Home Enviroment: No Family/Social History - Physician Review Nursing Documentation Reviewed: Yes Family/Social History: No Known Family HX Smoking Status: Former Smoker Hx Alcohol Use: Yes (ETOH USE IN THE PAST) Amount per day: 2 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) Hx Substance Use Treatment: No Allergies/Home Meds Allergies/Adverse Reactions: Allergies amoxicillin trihydrate [From Augmentin] Allergy (Verified 05/21/17 17:33) ANAPHYLAXIS potassium clavulanate [From Augmentin] Allergy (Verified 05/21/17 17:33) ANAPHYLAXIS prednimustine Allergy (Verified 05/21/17 17:33) RASH prednisolone Allergy (Verified 05/21/17 17:33) RASH prednisolone acetate, micronized Allergy (Verified 05/21/17 17:33) RASH prednisone Allergy (Verified 05/21/17 17:33) RASH prednylidene Allergy (Verified 05/21/17 17:33) RASH prednison Allergy (Uncoded 05/21/17 17:33) RASH Home Medications: Home Meds Medication Instructions Recorded Confirmed ALPRAZolam HALF TABLET [Xanax] 1 mg PO PRN PRN 01/05/17 06/21/17 Oxycodone HCl [Roxicodone] 15 mg PO Q6 PRN 01/05/17 06/21/17 Review of Systems - Physician Review All systems were reviewed & negative as marked: Yes - Review of Systems Constitutional: absent: Fevers, Night Sweats Respiratory: absent: SOB Cardiovascular: absent: Chest Pain Gastrointestinal: absent: Abdominal Pain, Diarrhea, Nausea, Vomiting Neurological: Headache Physical Exam Vital Signs Reviewed: Yes Vital Signs Temp Pulse Resp BP Pulse Ox 06/21/17 20:52 64 19 110/80 100 06/21/17 18:37 98.6 F 65 16 108/66 98 Temperature: Afebrile Blood Pressure: Normal Pulse: Regular Respiratory Rate: Normal Appearance: Positive for: Well-Appearing, Non-Toxic, Comfortable Pain Distress: None Mental Status: Positive for: Alert and Oriented X 3 - Systems Exam Head: Present: Atraumatic, Normocephalic Pupils: Present: PERRL Extroacular Muscles: Present: EOMI Conjunctiva: Present: Normal Mouth: Present: Moist Mucous Membranes Neck: Present: Normal Range of Motion Respiratory/Chest: Present: Clear to Auscultation, Good Air Exchange. No: Respiratory Distress, Accessory Muscle Use Cardiovascular: Present: Regular Rate and Rhythm, Normal S1, S2. No: Murmurs Abdomen: Present: Normal Bowel Sounds. No: Tenderness, Distention, Peritoneal Signs Back: Present: Normal Inspection Upper Extremity: Present: Normal Inspection. No: Cyanosis, Edema Lower Extremity: Present: Normal Inspection. No: Edema Neurological: Present: GCS=15, CN II-XII Intact, Speech Normal Skin: Present: Warm, Dry, Normal Color. No: Rashes Psychiatric: Present: Alert, Oriented x 3, Normal Insight, Normal Concentration Medical Decision Making ED Course and Treatment: 06/21/17 19:13 Impression: A 52 year old male with a complaint of headache and neck pain. Plan: -- Head CT -- Labs -- Benadryl and Reglan -- Reassess and disposition Prior Visits: Patient was last seen on 05/21/17. The patient came in with a complaint of dyspnea on exertion and chest pain. Progress Notes: EKG: Ordered, reviewed, and independently interpreted the EKG. Rate : 46 BPM Rhythm : Sinus Bradycardia Interpretation : No ST/T- wave changes CT Head Without Intravenous Contrast IMPRESSION: - No acute findings seen within the brain. - See above for remaining findings. Dictated and Authenticated by: Disha Sam MD 06/21/2017 8:43 PM Eastern Time ([place] & [place]) 06/21/17 22:22 pt in er making multiple requests for narcotic pain meds. nj rx reveals numerour narcotic rx. labs imaging neg. pt neuro intact in ner. ambulatory steady gait. advise outpt f/u return precautions. - Lab Interpretations Lab Results: 06/21/17 19:04 06/21/17 19:04 Lab Results 06/21/17 19:04: Sodium 139, Potassium 4.1, Chloride 101, Carbon Dioxide 27, Anion Gap 15, BUN 13, Creatinine 0.8, Est GFR ( Amer) > 60, Est GFR (Non- Af Amer) > 60, Random Glucose 98, Calcium 9.2, Total Bilirubin 0.6, AST 20, ALT 25, Alkaline Phosphatase 48, Total Protein 6.2, Albumin 4.1, Globulin 2.2, Albumin/Globulin Ratio 1.9 H 06/21/17 19:04: PT 11.6, INR 1.07, APTT 29.2 06/21/17 19:04: WBC 5.1, RBC 4.42, Hgb 12.6 L, Hct 36.2 L, MCV 81.9, MCH 28.5, MCHC 34.8, RDW 13.5, Plt Count 191, MPV 9.0, Gran % 62.8, Lymph % (Auto) 28.5, [place] % (Auto) 8.1 H, Eos % (Auto) 0.4 L, Baso % (Auto) 0.2, Gran # 3.18, Lymph # 1.4, [place] # 0.4, Eos # 0.0, Baso # 0.01 I have reviewed the lab results: Yes - RAD Interpretation Radiology Orders: 06/21/17 19:03 HEAD W/O CONTRAST [CT] Stat - Medication Orders Current Medication Orders: Discontinued Medications Diphenhydramine HCl (Benadryl) 25 mg IVP STAT STA Stop: 06/21/17 19:04 Last Admin: 06/21/17 19:12 Dose: 25 mg Comments: Metoclopramide HCl (Reglan) 10 mg IVP STAT STA Stop: 06/21/17 19:04 Last Admin: 06/21/17 19:12 Dose: 10 mg - Scribe Statement The provider has reviewed the documentation as recorded by the Mario Hobbs Provider Scribe Attestation: All medical record entries made by the Enriqueibcharlie were at my direction and personally dictated by me. I have reviewed the chart and agree that the record accurately reflects my personal performance of the history, physical exam, medical decision making, and the department course for this patient. I have also personally directed, reviewed, and agree with the discharge instructions and disposition. Disposition/Present on Arrival - Present on Arrival Any Indicators Present on Arrival: No History of DVT/PE: Yes History of Uncontrolled Diabetes: No Urinary Catheter: No History of Decub. Ulcer: No History Surgical Site Infection Following: None - Disposition Have Diagnosis and Disposition been Completed?: Yes Diagnosis: Headache Disposition: HOME/ ROUTINE Disposition Time: 08:00 Condition: STABLE Discharge Instructions (ExitCare): Acute Headache (ED) Additional Instructions: please follow up with your doctor/specialist. return to er with worsening symptoms or concerns. Prescriptions: Acetaminophen/Butalbital/Caf [Fioricet] 1 tab PO Q8 PRN #20 tab PRN Reason: Headache Referrals: Naveed Altman MD [Staff Provider] - Follow up with primary Casimiro Altman MD [Staff Provider] - Follow up with primary Judson Real MD [Staff Provider] - Follow up with primary Forms: [employer] (Senegalese)
[2017-06-21 19:28] LABS: ALB/GLOB RATIO 1.9 (1.1-1.8); ALBUMIN 4.1 g/dL (3.0-4.8); ALT/SGPT 25 U/L (7-56); AST/SGOT 20 U/L (15-59); BLOOD UREA NITROGEN 13 mg/dL (7-21); CALCIUM 9.2 mg/dL (8.4-10.5); GFR AFRICAN-AMERICAN > 60; GFR NON-AFRICAN AMERICAN > 60
[2017-06-21 19:30] LABS: BASO # 0.01 K/mm3 (0.0-2.0); BASO % 0.2 % (0.0-3.0); EOS % 0.4 % (1.5-5.0); GRAN # 3.18 (1.4-6.5); GRAN % 62.8 % (50.0-68.0); HEMOGLOBIN 12.6 g/dL (14.0-18.0); LYMPH # 1.4 (1.2-3.4); LYMPH % 28.5 % (22.0-35.0); MEAN CELL VOLUME 81.9 fl (80.0-105.0); MEAN CORPUSCULAR HEMOGLOBIN 28.5 pg (25.0-35.0); MEAN CORPUSCULAR HGB CONC 34.8 g/dl (31.0-37.0); MONO # 0.4 (0.1-0.6); MONO % 8.1 % (1.0-6.0); PLATELET COUNT 191 10^3/uL (120.0-450.0); RBC 4.42 10^6/uL (3.5-6.1); RED CELL DISTRIBUTION WIDTH 13.5 % (11.5-14.5); WHITE BLOOD COUNT 5.1 10^3/ul (4.5-11.0)
[2017-06-21 19:34] LABS: INR 1.07 (0.93-1.08); PARTIAL THROMBOPLASTIN TIME 29.2 Seconds (23.7-30.8); PROTHROMBIN TIME 11.6 Seconds (9.9-11.8)
--- NOTE | 2017-06-21 20:43 | CT ---
EXAM: CT Head Without Intravenous Contrast CLINICAL HISTORY: 52 years old, male; Pain; Headache; Headache not specified; Additional info: COOK on [employer] TECHNIQUE: Axial computed tomography images of the head/brain without intravenous contrast. All CT scans at this facility use one or more dose reduction techniques, viz.: automated exposure control; ma/kV adjustment per patient size (including targeted exams where dose is matched to indication; i.e. head); or iterative reconstruction technique. EXAM DATE/TIME: 06/21/2017 7:03 PM COMPARISON: Prior head CT of 01/05/2017 FINDINGS: BRAIN: Diffuse, moderate cortical atrophy and ventriculomegaly, similar in appearance to the prior exam. No significant acute abnormality identified. No acute hemorrhage seen within the brain. No acute extra-axial fluid collections visualized. No evidence of significant mass effect within the brain. VENTRICLES: See above. BONES/JOINTS: Deformity of the nasal bones bilaterally, most compatible with old/chronic fractures. SOFT TISSUES: No acute abnormality of the visualized soft tissues is seen. SINUSES: Small mucus retention cysts in the bilateral maxillary sinuses. Remaining visualized paranasal sinuses appear clear. MASTOID AIR CELLS: Mastoid air cells appear clear. IMPRESSION: - No acute findings seen within the brain. - See above for remaining findings.
[2017-06-21 20:53] VITALS: BP 110/80; PULSE 64; RESP 19; O2SAT 100
--- NOTE | 2017-06-22 13:19 | CARD ---
APPROVED REPORT EKG Measurement Heart [id number] <Conclusion> Marked sinus bradycardia Abnormal ECG
== END 2017-06-21 20:52 | disposition home or self-care (01) ==
LOC: ED 18:31
DX: R51 Headache (principal); Z86.711 Personal history of pulmonary embolism; Z79.01 Long term (current) use of anticoagulants; Z98.61 Coronary angioplasty status
CPT/HCPCS: 70450; 80053; 85025; 85610; 85730; 93005; 96374; 96375; 99285; J1200; J2765

== ENCOUNTER 2017-06-23 21:41 | Emergency (ER) | payer OTHER ==
[2017-06-23] MEDS ORDERED: HYDROmorphone 2 mg/ml ISec IVP STA ×3 (21:50→22:47)
[2017-06-23 21:52] VITALS: BMI 21.7
[2017-06-23] MEDS ORDERED: Sodium Chloride 0.9% 500 ML IV SCH (22:15)
--- NOTE | 2017-06-23 22:18 | ED PDOC ---
Arrival/HPI - General Chief Complaint: Shortness Of Breath Time Seen by Provider: 06/23/17 21:43 Historian: Patient - History of Present Illness Narrative History of Present Illness (Text): 06/23/17 22:16 52 year old male whose past medical history includes, Pulmonary Embolism, presents to the emergency department by EMS complaining of shortness of breathe chest pain and headache . Patient states to have nausea and vomiting, but denies any fever, chills, urinary symptoms, back pain, neck pain, headache, dizziness, or any other complaints. 06/24/17 06:36 06/24/17 06:36 Time/Duration: Prior to Arrival Symptom Onset: Gradual Symptom Course: Unchanged Context: Home Past Medical History - Provider Review Nursing Documentation Reviewed: Yes - Infectious Disease Hx of Infectious Diseases: None - Tetanus Immunization Tetanus Immunization: Unknown - Past Medical History Past Medical History: No Previous - Cardiac Hx Cardiac Disorders: Yes (PTCA 3 YRS AGO) Other/Comment: low bp - Pulmonary Hx Respiratory Disorders: Yes (SMOKED CIGARETTES QUIT 05-17-17) Hx Bronchitis: Yes Hx Pulmonary Embolism: Yes (right lung) - Neurological Hx Neurological Disorder: No - HEENT Hx HEENT Disorder: Yes (BLIND RIGHT EYE-) - Renal Hx Renal Disorder: No - Endocrine/Metabolic Hx Endocrine Disorders: No - Hematological/Oncological Hx Blood Disorders: No - Integumentary Hx Dermatological Disorder: No - Musculoskeletal/Rheumatological Hx Musculoskeletal Disorders: Yes (ROTATOR CUFF SX,AVULSION FX,) Hx Arthritis: Yes Hx Back Pain: Yes Hx Falls: No Hx Herniated Disk: Yes - Gastrointestinal Hx Gastrointestinal Disorders: Yes (DOUBLE HERNIA,HEMORHOIDECTOMY) Other/Comment: GI BLEED - Genitourinary/Gynecological Hx Genitourinary Disorders: No - Psychiatric Hx Psychophysiologic Disorder: Yes Hx Anxiety: Yes Hx Depression: No Hx Emotional Abuse: No Hx Physical Abuse: No 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) - Past Surgical History Past Surgical History: No Previous - Surgical History Hx Cardiac Catheterization: Yes Hx Orthopedic Surgery: Yes (right shouldert) Other/Comment: hemorrhoid surgery, 5 avusion fx, right rotator cuff surgery, double hernia sx as child - Anesthesia Hx Anesthesia: Yes Hx Anesthesia Reactions: No - Suicidal Assessment Feels Threatened In Home Enviroment: No Family/Social History - Physician Review Nursing Documentation Reviewed: Yes Family/Social History: No Known Family HX Smoking Status: Former Smoker Hx Alcohol Use: Yes (ETOH USE IN THE PAST) Amount per day: 2 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) Hx Substance Use Treatment: No Allergies/Home Meds Allergies/Adverse Reactions: Allergies amoxicillin trihydrate [From Augmentin] Allergy (Verified 05/21/17 17:33) ANAPHYLAXIS potassium clavulanate [From Augmentin] Allergy (Verified 05/21/17 17:33) ANAPHYLAXIS prednimustine Allergy (Verified 05/21/17 17:33) RASH prednisolone Allergy (Verified 05/21/17 17:33) RASH prednisolone acetate, micronized Allergy (Verified 05/21/17 17:33) RASH prednisone Allergy (Verified 05/21/17 17:33) RASH prednylidene Allergy (Verified 05/21/17 17:33) RASH prednison Allergy (Uncoded 05/21/17 17:33) RASH Home Medications: Home Meds Medication Instructions Recorded Confirmed ALPRAZolam HALF TABLET [Xanax] 1 mg PO PRN PRN 01/05/17 06/21/17 Oxycodone HCl [Roxicodone] 15 mg PO Q6 PRN 01/05/17 06/23/17 Review of Systems - Physician Review All systems were reviewed & negative as marked: Yes - Review of Systems Constitutional: absent: Fevers, Other (Chills) Respiratory: SOB Cardiovascular: Chest Pain Gastrointestinal: Nausea, Vomiting Genitourinary Male: Normal. absent: Dysuria, Frequency, Hematuria Musculoskeletal: absent: Back Pain, Neck Pain Neurological: Headache. absent: Dizziness Physical Exam Vital Signs Reviewed: Yes Vital Signs Temp Pulse Resp BP Pulse Ox 06/24/17 00:55 78 16 100/57 L 97 06/23/17 22:38 80 18 109/67 100 06/23/17 22:21 97.6 F 90 20 109/67 100 06/23/17 21:47 115 H 20 119/78 100 Temperature: Afebrile Blood Pressure: Normal Pulse: Tachycardic Respiratory Rate: Normal Appearance: Positive for: Well-Appearing, Non-Toxic, Uncomfortable Pain Distress: None Mental Status: Positive for: Alert and Oriented X 3 - Systems Exam Head: Present: Atraumatic, Normocephalic Pupils: Present: PERRL Extroacular Muscles: Present: EOMI Conjunctiva: Present: Normal Mouth: Present: Moist Mucous Membranes Neck: Present: Normal Range of Motion Respiratory/Chest: Present: Clear to Auscultation, Good Air Exchange. No: Respiratory Distress, Accessory Muscle Use Cardiovascular: Present: Normal S1, S2, Tachycardic. No: Murmurs Abdomen: Present: Normal Bowel Sounds. No: Tenderness, Distention, Peritoneal Signs Back: Present: Normal Inspection Upper Extremity: Present: Normal Inspection. No: Cyanosis, Edema Lower Extremity: Present: Normal Inspection. No: Edema Neurological: Present: GCS=15, CN II-XII Intact, Speech Normal Skin: Present: Warm, Dry, Normal Color. No: Rashes Psychiatric: Present: Alert, Oriented x 3, Normal Insight, Normal Concentration Medical Decision Making ED Course and Treatment: 06/23/17 22:16 Impression: 52 year old male present for shortness of breathe and chest pain. Associated symptoms include severe headache, nausea, and vomiting. Plan: -- Head CT -- Chest CT -- EKG -- Labs -- Chest X-ray -- Dilaudid -- IV Fluids -- Zofran Inj -- Urinalysis -- Reassess and disposition Prior Visits: Notes and results from previous visits were reviewed. On 06/21/2017 patient came in complaining of headache and neck pain. Progress Notes: 06/23/17 22:49 EKG shows Sinus Tachycardia at [address]/T waves. Interpreted by me. EXAM: CT Head Without Intravenous Contrast 06/23/2017 10:54 PM Dictated and Authenticated by: Jose De Jesus Venegas MD IMPRESSIONS: 1. No definite acute intracranial abnormality. 2. Incidental/non-acute findings are described above. 06/23/17 23:56 CXR Impression: As read by me, shows no acute processes. EXAM: CT Angiography Chest With Intravenous Contrast 06/24/2017 12:40 AM Dictated and Authenticated by: Jose De Jesus Venegas MD 1. No definite CT evidence of pulmonary embolism. 2. Pulmonary nodules. For low-risk patients, no follow-up is necessary. For high -risk patients (smoking history or other known risk factors) an optional CT at 12 months could be performed. 3. Incidental/non-acute findings are described above. Re-evaluation Time: 00:51 Reassessment Condition: Re-examined, Improved - Lab Interpretations Lab Results: 06/23/17 21:59 06/23/17 21:59 Lab Results 06/23/17 21:59: Alcohol, Quantitative 34 H 06/23/17 21:59: Sodium 142, Potassium 4.0, Chloride 106, Carbon Dioxide 18 L, Anion Gap 22 H, BUN 11, Creatinine 0.8, Est GFR ( Amer) > 60, Est GFR ( Non-Af Amer) > 60, Random Glucose 91, Calcium 10.2, Phosphorus 1.6 L, Magnesium 2.2, Total Bilirubin 0.8, AST 29, ALT 22, Alkaline Phosphatase 47, Lactate Dehydrogenase 467, Total Creatine Kinase 60, Troponin I < 0.01, Total Protein 7.6, Albumin 4.9 H, Globulin 2.7, Albumin/Globulin Ratio 1.8 06/23/17 21:59: PT 11.1, INR 1.03, APTT 27.0 06/23/17 21:59: WBC 6.2 D, RBC 4.85, Hgb 14.1, Hct 39.2 L, MCV 80.8, MCH 29.1, MCHC 36.0, RDW 13.9, Plt Count 250, MPV 9.1, Gran % 43.1 L, Lymph % (Auto) 46.0 H, [place] % (Auto) 9.6 H, Eos % (Auto) 0.8 L, Baso % (Auto) 0.5, Gran # 2.65, Lymph # 2.8, [place] # 0.6, Eos # 0.1, Baso # 0.03 I have reviewed the lab results: Yes - RAD Interpretation Radiology Orders: 06/23/17 21:49 HEAD W/O CONTRAST [CT] Stat 06/23/17 21:50 CHEST PORTABLE [RAD] Stat 06/23/17 22:48 ANGIO CHEST PE PROTOCOL [CT] Stat - EKG Interpretation Interpreted by ED Physician: Yes - Medication Orders Current Medication Orders: Discontinued Medications Hydromorphone HCl (Dilaudid) 2 mg IVP STAT STA Stop: 06/23/17 21:51 Last Admin: 06/23/17 22:01 Dose: 2 mg Hydromorphone HCl (Dilaudid) 2 mg IVP STAT STA Stop: 06/23/17 22:22 Last Admin: 06/23/17 22:33 Dose: 2 mg Hydromorphone HCl (Dilaudid) 2 mg IVP STAT STA Stop: 06/23/17 22:48 Last Admin: 06/23/17 23:12 Dose: 2 mg Sodium Chloride (Sodium Chloride 0.9%) 500 mls @ 1,000 mls/hr IV .Q30M ANNAMARIE Last Admin: 06/23/17 22:15 Dose: 1,000 mls/hr Iohexol (Omnipaque 350 100 Ml) Confirm Administered Dose 350 mg .ROUTE .STK-MED ONE Stop: 06/23/17 23:16 Metoclopramide HCl (Reglan) 10 mg IVP ONCE ONE Stop: 06/23/17 23:04 Last Admin: 06/23/17 23:11 Dose: 10 mg Ondansetron HCl (Zofran Inj) 4 mg IVP STAT STA Stop: 06/23/17 21:51 Last Admin: 06/23/17 22:01 Dose: 4 mg - Scribe Statement The provider has reviewed the documentation as recorded by the Enriqueibcharlie Colvin All medical record entries made by the Mario were at my direction and personally dictated by me. I have reviewed the chart and agree that the record accurately reflects my personal performance of the history, physical exam, medical decision making, and the department course for this patient. I have also personally directed, reviewed, and agree with the discharge instructions and disposition. Disposition/Present on Arrival - Present on Arrival Any Indicators Present on Arrival: No History of DVT/PE: Yes History of Uncontrolled Diabetes: No Urinary Catheter: No History of Decub. Ulcer: No History Surgical Site Infection Following: None - Disposition Have Diagnosis and Disposition been Completed?: Yes Diagnosis: Intractable headache Disposition: HOME/ ROUTINE Disposition Time: 00:52 Condition: GOOD Discharge Instructions (ExitCare): Acute Headache (ED) Referrals: Garo Brady MD [Primary Care Provider] - Follow up with primary Forms: [employer] (Stateless)
[2017-06-23 22:22] VITALS: TEMP 97.6
[2017-06-23 22:23] LABS: BASO # 0.03 K/mm3 (0.0-2.0); BASO % 0.5 % (0.0-3.0); EOS # 0.1 (0.0-0.7); EOS % 0.8 % (1.5-5.0); GRAN # 2.65 (1.4-6.5); GRAN % 43.1 % (50.0-68.0); HEMOGLOBIN 14.1 g/dL (14.0-18.0); LYMPH # 2.8 (1.2-3.4); MEAN CELL VOLUME 80.8 fl (80.0-105.0); MEAN CORPUSCULAR HEMOGLOBIN 29.1 pg (25.0-35.0); MEAN PLATELET VOLUME 9.1 fl (7.0-11.0); MONO # 0.6 (0.1-0.6); MONO % 9.6 % (1.0-6.0); PLATELET COUNT 250 10^3/uL (120.0-450.0); RBC 4.85 10^6/uL (3.5-6.1); RED CELL DISTRIBUTION WIDTH 13.9 % (11.5-14.5); WHITE BLOOD COUNT 6.2 10^3/ul (4.5-11.0)
[2017-06-23 22:28] LABS: ALB/GLOB RATIO 1.8 (1.1-1.8); ALBUMIN 4.9 g/dL (3.0-4.8); ALT/SGPT 22 U/L (7-56); AST/SGOT 29 U/L (15-59); BLOOD UREA NITROGEN 11 mg/dL (7-21); CALCIUM 10.2 mg/dL (8.4-10.5); GFR AFRICAN-AMERICAN > 60; GFR NON-AFRICAN AMERICAN > 60; MAGNESIUM 2.2 mg/dL (1.7-2.2)
[2017-06-23 22:32] LABS: INR 1.03 (0.93-1.08); PROTHROMBIN TIME 11.1 Seconds (9.9-11.8)
[2017-06-23 22:43] LABS: TROPONIN I < 0.01 ng/mL
--- NOTE | 2017-06-23 22:55 | CT ---
EXAM: CT Head Without Intravenous Contrast CLINICAL HISTORY: 52 years old, male; Pain; Headache; Headache not specified; Additional info: COOK TECHNIQUE: Axial computed tomography images of the head/brain without intravenous contrast. All CT scans at this facility use one or more dose reduction techniques, viz.: automated exposure control; ma/kV adjustment per patient size (including targeted exams where dose is matched to indication; i.e. head); or iterative reconstruction technique. COMPARISON: CT - HEAD W/O CONTRAST 06/21/2017 7:41:11 PM FINDINGS: Brain: No intracranial hemorrhage. No mass. No definite edema. Ventricles: No hydrocephalus. Bones/joints: No acute fracture. Soft tissues: Unremarkable. Sinuses: Minimal mucosal thickening/retention cysts of maxillary sinuses. Mastoid air cells: No mastoid effusion. Orbits: Unremarkable as visualized. IMPRESSION: 1. No definite acute intracranial abnormality. 2. Incidental/non-acute findings are described above.
[2017-06-23] MEDS ORDERED: Iohexol 350 MG/100 ML VIAL ONE (23:15)
--- NOTE | 2017-06-24 00:40 | CT ---
EXAM: CT Angiography Chest With Intravenous Contrast CLINICAL HISTORY: 52 years old, male; Pain; Chest pain TECHNIQUE: Axial computed tomographic angiography images of the chest with intravenous contrast using pulmonary embolism protocol. All CT scans at this facility use one or more dose reduction techniques, viz.: automated exposure control; ma/kV adjustment per patient size (including targeted exams where dose is matched to indication; i.e. head); or iterative reconstruction technique. MIP reconstructed images were created and reviewed. Coronal and sagittal reformatted images were created and reviewed. CONTRAST: 93 mL of omni 350 administered intravenously. COMPARISON: CT - ANGIO CHEST PE PROTOCOL 05/21/2017 4:13:36 AM FINDINGS: Limitations: Motion artifact - mild. Pulmonary arteries: No definite pulmonary embolism. Aorta: No aneurysm. No dissection. Lungs: Mild paraseptal emphysematous changes. No consolidation. Few calcified granulomas. Few noncalcified pulmonary nodules, up to 0.3 cm. Pleural space: No significant effusion. No pneumothorax. Heart: No cardiomegaly. No significant pericardial effusion. Bones/joints: No acute fracture. No dislocation. Soft tissues: Unremarkable. Lymph nodes: No pathologically enlarged lymph nodes. IMPRESSION: 1. No definite CT evidence of pulmonary embolism. 2. Pulmonary nodules. For low-risk patients, no follow-up is necessary. For high-risk patients (smoking history or other known risk factors) an optional CT at 12 months could be performed. 3. Incidental/non-acute findings are described above.
[2017-06-24 01:40] VITALS: BP 100/57; PULSE 78; RESP 16; O2SAT 97
--- NOTE | 2017-06-24 07:15 | RAD ---
HISTORY: cp COMPARISON: 12/06/2014 semi-erect portable chest FINDINGS: LUNGS: No consolidation. Sub cm scattered pulmonary nodules/granulomas - similar-appearing. PLEURA: No significant pleural effusion identified, no pneumothorax apparent. CARDIOVASCULAR: The prominent heart size currently may be technical OSSEOUS STRUCTURES: No significant abnormalities. VISUALIZED UPPER ABDOMEN: Normal. OTHER FINDINGS: None. IMPRESSION: No active disease
--- NOTE | 2017-06-24 09:54 | CARD ---
APPROVED REPORT EKG Measurement Heart [id number] <Conclusion> Sinus tachycardia Nonspecific T wave abnormality Abnormal ECG
== END 2017-06-24 01:00 | disposition home or self-care (01) ==
LOC: ED 21:41
DX: R51 Headache (principal); Z86.711 Personal history of pulmonary embolism; Z98.61 Coronary angioplasty status; Z87.891 Personal history of nicotine dependence
CPT/HCPCS: 70450; 71010; 71275; 80053; 80320; 82550; 83615; 83735; 84100; 84484; 85025; 85610; 85730; 93005; 96374; 96375; 96376; 99284; J1170; J2405; J2765; J7040; Q9967

== ENCOUNTER 2017-11-10 11:07 | Emergency (ER) | payer OTHER ==
[2017-11-10 11:26] VITALS: BMI 28.6
[2017-11-10 11:29] VITALS: RESP 18; TEMP 98.7; O2SAT 96
[2017-11-10] MEDS ORDERED: Sodium Chloride 0.9% 1,000 ML IV STA (11:39)
--- NOTE | 2017-11-10 11:48 | ED PDOC ---
Arrival/HPI - General Chief Complaint: Flu-like Symptoms Time Seen by Provider: 11/10/17 11:39 Historian: Patient - History of Present Illness Narrative History of Present Illness (Text): 11/10/17 11:32 52 year old male, whose history includes pulmonary embolism in May and June 2017, presents to the Emergency department complaining of a cough for a couple weeks. Patient experiences pain with coughing and deep breaths. Patient also complains of fever, night sweats, and wheezing. Patient was evaluated by Dr. Brady this morning and was advised to seek Emergency department evaluation for admission. Patient denies any nausea, vomiting, diarrhea, urinary symptoms, back pain, neck pain, headache, dizziness or any other complaints. Time/Duration: > week Symptom Onset: Gradual Symptom Course: Unchanged Modifying Factors (Text): Pain is worsened with cough and deep breaths. Context: Home Past Medical History - Provider Review Nursing Documentation Reviewed: Yes - Infectious Disease Hx of Infectious Diseases: None - Tetanus Immunization Tetanus Immunization: Unknown - Past Medical History Past Medical History: No Previous - Cardiac Hx Cardiac Disorders: Yes (PTCA 3 YRS AGO) Other/Comment: low bp - Pulmonary Hx Respiratory Disorders: Yes (SMOKED CIGARETTES QUIT 05-17-17) Hx Bronchitis: Yes Hx Pulmonary Embolism: Yes (right lung) - Neurological Hx Neurological Disorder: No - HEENT Hx HEENT Disorder: Yes (BLIND RIGHT EYE-) - Renal Hx Renal Disorder: No - Endocrine/Metabolic Hx Endocrine Disorders: No - Hematological/Oncological Hx Blood Disorders: No - Integumentary Hx Dermatological Disorder: No - Musculoskeletal/Rheumatological Hx Musculoskeletal Disorders: Yes (ROTATOR CUFF SX,AVULSION FX,) Hx Arthritis: Yes Hx Back Pain: Yes Hx Falls: No Hx Herniated Disk: Yes - Gastrointestinal Hx Gastrointestinal Disorders: Yes (DOUBLE HERNIA,HEMORHOIDECTOMY) Other/Comment: GI BLEED - Genitourinary/Gynecological Hx Genitourinary Disorders: No - Psychiatric Hx Psychophysiologic Disorder: Yes Hx Anxiety: Yes Hx Depression: No Hx Emotional Abuse: No Hx Physical Abuse: No 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) - Past Surgical History Past Surgical History: No Previous - Surgical History Hx Cardiac Catheterization: Yes Hx Orthopedic Surgery: Yes (right shouldert) Other/Comment: hemorrhoid surgery, 5 avusion fx, right rotator cuff surgery, double hernia sx as child - Anesthesia Hx Anesthesia: Yes Hx Anesthesia Reactions: No - Suicidal Assessment Feels Threatened In Home Enviroment: No Family/Social History - Physician Review Nursing Documentation Reviewed: Yes Family/Social History: Blood Clots Smoking Status: Former Smoker Hx Alcohol Use: Yes (ETOH USE IN THE PAST) Amount per day: 2 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) Hx Substance Use Treatment: No Allergies/Home Meds Allergies/Adverse Reactions: Allergies amoxicillin trihydrate [From Augmentin] Allergy (Verified 05/21/17 17:33) ANAPHYLAXIS potassium clavulanate [From Augmentin] Allergy (Verified 05/21/17 17:33) ANAPHYLAXIS prednimustine Allergy (Verified 05/21/17 17:33) RASH prednisolone Allergy (Verified 05/21/17 17:33) RASH prednisolone acetate, micronized Allergy (Verified 05/21/17 17:33) RASH prednisone Allergy (Verified 05/21/17 17:33) RASH prednylidene Allergy (Verified 05/21/17 17:33) RASH prednison Allergy (Uncoded 05/21/17 17:33) RASH Home Medications: Home Meds Medication Instructions Recorded Confirmed Albuterol 0.083% [Albuterol 0.083% 1 vial IH QID 11/10/17 11/10/17 Inhal Bette (2.5 mg/3 ml) UD] Apixaban [Eliquis] 1 tab PO BID 11/10/17 11/10/17 Folic Acid [Folic Acid] 1 tab PO DAILY 11/10/17 11/10/17 HYDROmorphone [Dilaudid] 1 tab PO DAILY 11/10/17 11/10/17 Metoprolol Succinate [Toprol XL] 1 tab PO DAILY 11/10/17 11/10/17 Omeprazole [Omeprazole] 1 cap PO BID 11/10/17 11/10/17 oxyCODONE [oxyCODONE Immediate 1 tab PO DAILY PRN 11/10/17 11/10/17 Release Tab] Review of Systems - Physician Review All systems were reviewed & negative as marked: Yes - Review of Systems Constitutional: Fevers, Night Sweats Respiratory: Cough, Wheezing Gastrointestinal: absent: Diarrhea, Nausea, Vomiting Genitourinary Male: absent: Dysuria Musculoskeletal: absent: Back Pain, Neck Pain Neurological: absent: Headache, Dizziness Physical Exam Vital Signs Reviewed: Yes Vital Signs Temp Pulse Resp BP Pulse Ox 11/10/17 12:50 59 L 18 118/71 96 11/10/17 11:29 98.7 F 56 L 18 116/73 96 Temperature: Afebrile Blood Pressure: Normal Pulse: Bradycardic Respiratory Rate: Normal Appearance: Positive for: Non-Toxic, Comfortable Pain Distress: None Mental Status: Positive for: Alert and Oriented X 3 - Systems Exam Head: Present: Atraumatic, Normocephalic Pupils: Present: PERRL Mouth: Present: Moist Mucous Membranes Neck: Present: Normal Range of Motion Respiratory/Chest: Present: Decreased Breath Sounds (bilateral lower regions). No: Accessory Muscle Use, Wheezes, Rales Cardiovascular: Present: Regular Rate and Rhythm, Normal S1, S2. No: Murmurs Abdomen: Present: Normal Bowel Sounds. No: Tenderness, Distention, Peritoneal Signs Lower Extremity: Present: CALF TENDERNESS (subjective tenderness to left calf). No: Edema, Swelling Neurological: Present: GCS=15, CN II-XII Intact, Speech Normal Psychiatric: Present: Alert, Oriented x 3, Normal Insight, Normal Concentration Medical Decision Making ED Course and Treatment: 11/10/17 11:50 Impression: 52 year old male presents to the Emergency department complaining of cough, fever, and night sweats. Plan: -- Chest CT scan with contrast -- EKG -- Chest xray -- US lower extremities -- Labs -- IV fluids -- Reassess and disposition Progress Notes: 11/10/17 13:42 Labs reviewed; all negative including a negative Troponin. 11/10/17 14:43 Patient will be discharged home with Azithromycin. - Lab Interpretations Lab Results: 11/10/17 12:49 11/10/17 12:49 Lab Results 11/10/17 12:49: Sodium 142, Potassium 4.1, Chloride 104, Carbon Dioxide 28, Anion Gap 15, BUN 15, Creatinine 0.8, Est GFR ( Amer) > 60, Est GFR (Non- Af Amer) > 60, Random Glucose 99, Calcium 9.0, Total Bilirubin 0.5, AST 30, ALT 28, Alkaline Phosphatase 57, Troponin I < 0.01, NT-Pro-B Natriuret Pep 164, Total Protein 7.5, Albumin 4.6, Globulin 2.9, Albumin/Globulin Ratio 1.6 11/10/17 12:49: WBC 6.3, RBC 4.61, Hgb 13.6 L, Hct 40.1 L, MCV 87.0 D, MCH 29.5 , MCHC 33.9, RDW 13.9, Plt Count 193, MPV 9.4, Gran % 77.0 H, Lymph % (Auto) 16.3 L, Atlantic % (Auto) 6.5 H, Eos % (Auto) 0.2 L, Baso % (Auto) 0.0, Gran # 4.85 , Lymph # 1.0 L, Atlantic # 0.4, Eos # 0.0, Baso # 0.00 - RAD Interpretation Narrative RAD Interpretations (Text): 11/10/2017 14:29:52 PROCEDURE: CT Chest with contrast (Pulmonary Angiogram) FINDINGS: No pulmonary embolism. AORTA: No acute findings. No thoracic aortic aneurysm. LUNGS: There is a calcified granuloma in the right middle lobe. This is unchanged. The lungs are otherwise clear PLEURAL SPACES: Unremarkable. No effusion or pneuomothorax. HEART: Unremarkable. No cardiomegaly. No significant pericardial effusion. LYMPH NODES: No lymphadenopathy. IMPRESSION: Unremarkable CT pulmonary angiogram. No pulmonary embolus. 11/10/2017 15:05:22 PROCEDURE: CHEST RADIOGRAPH, 1 VIEW LUNGS: Clear. PLEURA: No pneumothorax or pleural fluid seen. CARDIOVASCULAR: Normal: OSSEOUS STRUCTURES: No significant abnormalities. VISUALIZED UPPER ABDOMEN: Normal. OTHER FINDINGS: None. IMPRESSION: No active disease. Radiology Orders: 11/10/17 11:39 CHEST ONE VIEW [RAD] Stat 11/10/17 11:42 DUPLEX LOWER EXTRM VEIN BILAT [US] Stat 11/10/17 11:49 ANGIO CHEST PE PROTOCOL [CT] Stat Shank Breaker: Radiologist - EKG Interpretation EKG Interpretation (Text): 11/10/17 11:49 EKG: Ordered, reviewed, and independently interpreted the EKG. Rate : 55 BPM Rhythm : Sinus Bradycardia Interpretation : No ST-T changes. Interpreted by ED Physician: Yes Type: 12 lead EKG - Medication Orders Current Medication Orders: Discontinued Medications Sodium Chloride (Sodium Chloride 0.9%) 1,000 mls @ 30 mls/hr IV .Q24H STA Stop: 11/11/17 11:38 Last Admin: 11/10/17 12:52 Dose: 30 mls/hr eMAR Start Stop Document 11/10/17 12:52 OCS (Rec: 11/10/17 12:52 [place] [facility] [id number] Intravenous Solution Start Date 11/10/17 Start Time 12:52 - Scribe Statement The provider has reviewed the documentation as recorded by the Scribe Keenan Rapp All medical record entries made by the Scribe were at my direction and personally dictated by me. I have reviewed the chart and agree that the record accurately reflects my personal performance of the history, physical exam, medical decision making, and the department course for this patient. I have also personally directed, reviewed, and agree with the discharge instructions and disposition. Disposition/Present on Arrival - Present on Arrival Any Indicators Present on Arrival: No History of DVT/PE: Yes History of Uncontrolled Diabetes: No Urinary Catheter: No History of Decub. Ulcer: No History Surgical Site Infection Following: None - Disposition Have Diagnosis and Disposition been Completed?: Yes Diagnosis: Bronchitis, Smoker Disposition: HOME/ ROUTINE Disposition Time: 22:45 Patient Plan: Discharge Condition: STABLE Discharge Instructions (ExitCare): Acute Bronchitis (ED) Print Language: GUYANESE Prescriptions: Levofloxacin [Levaquin] 500 mg PO DAILY #7 tablet Referrals: Garo Brady MD [Family Provider] - Follow up with primary Forms: [employer] (Armenian)
[2017-11-10 13:09] VITALS: BP 118/71; PULSE 59
[2017-11-10 13:12] LABS: EOS % 0.2 % (1.5-5.0); GRAN # 4.85 (1.4-6.5); HEMOGLOBIN 13.6 g/dL (14.0-18.0); LYMPH % 16.3 % (22.0-35.0); MEAN CORPUSCULAR HEMOGLOBIN 29.5 pg (25.0-35.0); MEAN CORPUSCULAR HGB CONC 33.9 g/dl (31.0-37.0); MEAN PLATELET VOLUME 9.4 fl (7.0-11.0); MONO # 0.4 (0.1-0.6); MONO % 6.5 % (1.0-6.0); RBC 4.61 10^6/uL (3.5-6.1); RED CELL DISTRIBUTION WIDTH 13.9 % (11.5-14.5); WHITE BLOOD COUNT 6.3 10^3/ul (4.5-11.0)
[2017-11-10 13:18] LABS: ALB/GLOB RATIO 1.6 (1.1-1.8); ALBUMIN 4.6 g/dL (3.0-4.8); ALT/SGPT 28 U/L (7-56); AST/SGOT 30 U/L (17-59); BLOOD UREA NITROGEN 15 mg/dL (7-21); GFR AFRICAN-AMERICAN > 60; GFR NON-AFRICAN AMERICAN > 60
[2017-11-10] MEDS ORDERED: Iodixanol 320 MG/ML 100 ML BOTTLE IV ONE (13:20)
[2017-11-10 13:29] LABS: B-TYPE NATRIURETIC PEPTIDE 164 pg/mL (0-450); TROPONIN I < 0.01 ng/mL
--- NOTE | 2017-11-10 14:31 | CT ---
PROCEDURE: CT Chest with contrast (Pulmonary Angiogram) HISTORY: r/o PE COMPARISON: 06/23/2017 CT TECHNIQUE: Axial computed tomography images were obtained of the chest in the pulmonary arterial phase of enhancement. Coronal and sagittal reformatted images were created and reviewed. Intravenous contrast dose: 100 cc of Visipaque 320 Radiation dose: Total exam DLP = 444 mGy-cm. This CT exam was performed using one or more of the following dose reduction techniques: Automated exposure control, adjustment of the mA and/or kV according to patient size, and/or use of iterative reconstruction technique. FINDINGS: PULMONARY ARTERIES: Unremarkable. No pulmonary embolism. AORTA: No acute findings. No thoracic aortic aneurysm. LUNGS: There is a calcified granuloma in the right middle lobe. This is unchanged. The lungs are otherwise clear PLEURAL SPACES: Unremarkable. No effusion or pneuomothorax. HEART: Unremarkable. No cardiomegaly. No significant pericardial effusion. LYMPH NODES: No lymphadenopathy. BONES, CHEST WALL: Unremarkable. No fracture or destructive lesion OTHER FINDINGS: Unremarkable. IMPRESSION: Unremarkable CT pulmonary angiogram. No pulmonary embolus.
--- NOTE | 2017-11-10 15:07 | RAD ---
PROCEDURE: CHEST RADIOGRAPH, 1 VIEW HISTORY: sob COMPARISON: 06/23/2017 FINDINGS: LUNGS: Clear. PLEURA: No pneumothorax or pleural fluid seen. CARDIOVASCULAR: Normal. OSSEOUS STRUCTURES: No significant abnormalities. VISUALIZED UPPER ABDOMEN: Normal. OTHER FINDINGS: None. IMPRESSION: No active disease.
--- NOTE | 2017-11-10 17:38 | CARD ---
APPROVED REPORT EKG Measurement Heart [id number] <Conclusion> Sinus bradycardia Otherwise normal ECG
--- NOTE | 2017-11-10 18:30 | US ---
HISTORY: Leg pain and swelling. Evaluate for DVT PHYSICIAN(S): Luis E Bruce MD. TECHNIQUE: Duplex sonography and color-flow Doppler with graded compression were used to evaluate the deep venous systems of both lower extremities. FINDINGS: The visualized deep venous systems of both lower extremities are sonographically normal and compressible. Normal wave forms and augmentation are seen. There is no sonographic evidence for deep venous thrombosis in the visualized segments of both lower extremities. IMPRESSION: No sonographic evidence for deep venous thrombosis in the visualized segments of both lower extremities.
== END 2017-11-10 15:56 | disposition home or self-care (01) ==
LOC: ED 11:07
DX: J40 Bronchitis, not specified as acute or chronic (principal); Z87.891 Personal history of nicotine dependence
CPT/HCPCS: 71045; 71275; 80053; 83880; 84484; 85025; 93005; 93970; 99282; J7040; Q9967